=== PATIENT | male | born 1965 | race African-American/Black ===

== ENCOUNTER 2019-11-30 10:23 | Emergency (ER) | payer OTHER, SELFPAY ==
[2019-11-30 10:45] VITALS: BP 119/81; PULSE 90; RESP 16; TEMP 36.6; O2SAT 100
--- NOTE | 2019-11-30 11:32 | ED.BACK ---
HPI - Back Pain/Injury General Chief Complaint: Back Pain/Injury Stated Complaint: back pain Time Seen by Provider: 11/30/19 11:20 Source: patient and RN notes reviewed Mode of arrival: ambulatory Limitations: no limitations History of Present Illness HPI Narrative: 54-year-old male presents with concern for back pain. Reports left lower back pain that radiates down the left leg that is been present for 1 week, worsening last night. Denies any injury, trauma to the back. Denies perianal anesthesia, loss of bowel function, loss of bladder function. Reports history of disc issues in the back. Reports he has an appointment with his primary care provider, however was having trouble at work due to the pain. MD elicited complaint: back pain Related Data Home Medications Medication Instructions Recorded Confirmed duloxetine 60 mg capsule,delayed 60 mg PO DAILY 10/07/19 release quetiapine 50 mg tablet 50 mg PO BID 10/07/19 Allergies Allergy/AdvReac Type Severity Reaction Status Date / Time No Known Allergies Allergy Unknown Verified 08/02/19 14:11 No Known Allergies Allergy Uncoded 08/02/19 14:11 Review of Systems Review of Systems: Narrative: CONSTITUTIONAL: Denies malaise, chills, sweats, or fever. EYES: Denies visual changes CARDIOVASCULAR: Denies chest pain, palpitations, or edema. RESPIRATORY: Denies cough or dyspnea. GASTROINTESTINAL: Denies abdominal pain, nausea, vomiting, diarrhea, bloody, or mucous stools. GENITOURINARY: Denies dysuria or hematuria. SKIN: Denies bruising MUSCULOSKELETAL: Reports left low back pain with a muscle knot near his left buttock NEUROLOGIC: Denies numbness, weakness, or headache. All systems reviewed & are unremarkable except as noted in HPI and below PMFSH Family History Family History (Updated 07/16/16 @ 16:07 by DOCTOR UNKNOWN) Father Family history of Alzheimer's disease Mother Family history of malignant neoplasm of breast in first degree relative Family history of malignant neoplasm of ovary Grandparent Cerebrovascular accident Family history of heart disease in male family member before age 55 Other Family history of malignant neoplasm Social History Social History Smoking status: Never smoker Alcohol intake: current Comments At time of signature, agree with nursing past medical, surgical, social and family history. There is no relevant family history pertinent to the presenting complaint Exam Narrative: Exam Narrative: GENERAL: Well-appearing, well-nourished, and in no acute distress. HEAD: Normocephalic, atraumatic. EYES: PERRLA and EOMI. NECK: Supple. No lymphadenopathy. CHEST: Clear to auscultation. No respiratory distress. HEART: Regular rate and rhythm. Distal pulses palpable and equal, cap refill <3 seconds ABDOMEN: Soft, nontender, nondistended, normal active bowel sounds, no palpable or pulsatile masses. No CVA tenderness MUSCULOSKELETAL: Normal range of motion and strength in all extremities; 3/5 strength with hip flexion and extension, dorsiflexion and extension, knee flexion and extension, plantar flexion and extension bilaterally, exam affected by pain, strength equal. Normal sensation in dermatomal distributions with sensitivity to light touch and pain. No midline back tenderness to palpation. Left paraspinal tenderness. Transfers from lying to sitting to standing. SKIN: Warm, dry, no rash. No ecchymosis, erythema, open wounds to back. NEURO: No focal deficits. Alert and oriented x3. Reflexes intact. Normal gait. PSYCH: Normal mood and affect Course Course Emergency Course: Patient is aware of diagnosis, understands and agrees to treatment plan. Anticipatory guidance given. Patient agrees to follow-up as directed and is aware of reasons to seek care at the emergency department. Portions of this record may have been created with voice recognition software Vital Signs Vital signs: Vital Signs Temperature 97.8 F 11/30/19 10:4
== END 2019-11-30 11:40 | disposition home or self-care (01) ==
PROVIDERS: Emergency Provider Nurse Practitioner; PCP Family Medicine
DX: M54.5 Low back pain (principal); M19.90 Unspecified osteoarthritis, unspecified site
CPT/HCPCS: 99213; G0463

== ENCOUNTER → 2020-01-01 09:27 | Outpatient (CLI) | payer OTHER, SELFPAY ==
--- NOTE | ~2020-01-01 | MR_ITS ---
EXAMINATION: MR knee RT wo con DATE: 01/01/2020 10:15 INDICATION: Anterior right knee pain. Instability. TECHNIQUE: Magnetic resonance imaging (MRI) of the right knee was performed without intravenous contr ast. Sequences included axial PD-weighted FS FSE, coronal PD-weighted FSE and PD-weighted FS FSE, sag ittal PD-weighted FSE, and sagittal T2-weighted FS FSE. COMPARISON: Right knee radiographs 05/28/2016 FINDINGS: Medial compartment: Medial meniscus is normal. There are parameniscal cysts adjacent to the anterior horn and posterior h orn of medial meniscus. There is cartilage surface irregularity of tibial condyle and femoral condyle . There is shallow partial-thickness cartilage loss of femoral condyle involving the central and post erior articular surface. Lateral compartment: Lateral meniscus is normal. There is shallow partial-thickness cartilage loss of tibial condyle invol ving the central and posterior articular surface. There is deep partial thickness cartilage loss of f emoral condyle involving the central and posterior articular surface. Patellofemoral compartment: There is shallow partial-thickness cartilage loss of patellar medial and lateral facets and median ri dge with mild subchondral edema-like marrow signal intensity. There is deep partial thickness cartila ge loss of central trochlea with mild subchondral edema-like marrow signal intensity. There is shallo w partial-thickness cartilage loss of medial and lateral trochlea. Marginal osteophytes are noted. Ligaments and tendons: Anterior and posterior cruciate ligaments are normal. Medial collateral ligament is normal. There are changes of prior sprain of fibular collateral ligament characterized by thickening and increased sig nal intensity proximally. The patellar tendon is normal. There are surgical changes of distal quadric eps tendon repair. There is severe quadriceps tendinopathy. There is heterotopic ossification in quad riceps tendon. Fluid: There is a small knee joint effusion. IMPRESSION: 1. Moderate chondrosis of lateral and patellofemoral compartments and mild chondrosis of medial nick rtment. 2. Small knee joint effusion. 3. Severe quadriceps tendinopathy status post surgical repair. Reviewed, dictated and finalized at location A. IMPRESSION: 1. Moderate chondrosis of lateral and patellofemoral compartments and mild araceli drosis of medial compartment. 2. Small knee joint effusion. 3. Severe quadriceps tendinopathy status post surgical repair.
== END ==
PROVIDERS: PCP Family Medicine; Visit Provider Physician Assistant
DX: M25.461 Effusion, right knee (principal)
CPT/HCPCS: 73721

== ENCOUNTER 2020-05-24 09:23 | Outpatient (CLI) | payer OTHER, SELFPAY ==
[2020-05-24 10:15] LABS: Basophils Percent Auto 0.8 % (0.2-1.2); Eosinophils Absolute Auto 0.3 K/mm3 (0-0.3); Eosinophils Percent Auto 5.6 % (0-4.4); Hematocrit 43.4 % (42.0-52.0); Hemoglobin 14.6 g/dL (14.0-18.0); Immature Granulocyte Absolute 0.01 K/mm3 (0.00-0.031); Immature Granulocyte Percent A 0.2 % (0-0.5); Lymphocytes Absolute Auto 1.82 K/mm3 (0.9-3.2); Lymphocytes Percent Auto 36.4 % (18.3-44.2); Mean Corpuscular HGB Conc 33.6 g/dl (32-36); Mean Corpuscular Hemoglobin 29.3 pg (26-34); Mean Corpuscular Volume 87.1 fl (80-100); Mean Platelet Volume 8.9 fl (7.4-10.4); Monocytes Absolute Auto 0.6 K/mm3 (0.1-0.6); Monocytes Percent Auto 11.6 % (2.6-8.5); Neutrophils Absolute Auto 2.3 K/mm3 (1.3-6.7); Neutrophils Percent Auto 45.4 % (45.5-73.1); Platelet Count Result 233 k/mm3 (150-375); Red Blood Count 4.98 M/mm3 (4.6-6.20); Red Cell Distribution Width 12.4 % (11.5-14.5)
[2020-05-24 10:24] LABS: Alanine Aminotransferase 19 U/L (4-50); Albumin Level 4.3 g/dL (3.5-5.1); Alkaline Phosphatase 67 U/L (38-126); Anion Gap 12.8 mmol/L (7-16); Aspartate Amino Transferase 38 U/L (17-59); Bilirubin,Total 0.7 mg/dL (0.2-1.3); Blood Urea Nitrogen 9 mg/dL (9-20); Calcium 9.2 mg/dL (8.4-10.2); Carbon Dioxide 26 mmol/L (22-30); Chloride 102 mmol/L (98-107); Cholesterol 162 mg/dL (0-200); Estimated Glomerular Filt Rate > 60; Glucose 89 mg/dL (75-110); HDL Direct 66 mg/dL; Potassium 3.8 mmol/L (3.4-5.0); Sodium 137 mmol/L (137-145); Triglycerides 107 mg/dL (<150)
[2020-05-24 10:35] LABS: LDL Cholesterol Direct 70 mg/dL
[2020-05-24 10:56] LABS: Prostate Specific Antigen 0.7 ng/mL (< OR = 4.0)
== END 2020-05-24 09:24 | disposition home or self-care (01) ==
LOC: ANHLAB 09:25
PROVIDERS: PCP Family Medicine; Visit Provider Physician Assistant
DX: Z00.00 Encounter for general adult medical examination without abnormal findings (principal)
CPT/HCPCS: 36415; 80053; 80061; 84153; 84443; 85025

== ENCOUNTER 2021-01-06 09:53 | Outpatient (CLI) | payer OTHER, SELFPAY ==
[2021-01-06 10:18] LABS: Basophils Percent Auto 0.6 % (0.2-1.2); Eosinophils Absolute Auto 0.5 K/mm3 (0-0.3); Hematocrit 44.2 % (42.0-52.0); Hemoglobin 14.9 g/dL (14.0-18.0); Immature Granulocyte Absolute 0.02 K/mm3 (0.00-0.031); Immature Granulocyte Percent A 0.4 % (0-0.5); Lymphocytes Absolute Auto 1.66 K/mm3 (0.9-3.2); Lymphocytes Percent Auto 34.4 % (18.3-44.2); Mean Corpuscular HGB Conc 33.7 g/dl (32-36); Mean Corpuscular Hemoglobin 28.9 pg (26-34); Mean Corpuscular Volume 85.8 fl (80-100); Mean Platelet Volume 8.6 fl (7.4-10.4); Monocytes Absolute Auto 0.6 K/mm3 (0.1-0.6); Monocytes Percent Auto 11.4 % (2.6-8.5); Neutrophils Absolute Auto 2.1 K/mm3 (1.3-6.7); Neutrophils Percent Auto 43.2 % (45.5-73.1); Platelet Count Result 221 k/mm3 (150-375); Red Blood Count 5.15 M/mm3 (4.6-6.20); Red Cell Distribution Width 12.6 % (11.5-14.5); White Blood Count 4.8 K/mm3 (4.5-10.0)
[2021-01-06 10:20] LABS: Add Urine Microscopic? NO; Appearance Urine Clear (Clear); Bilirubin Urine Negative (Negative); Blood Urine Negative (Negative); Color Urine Yellow (Yellow); Glucose Urine UA Negative (Negative); Ketones Urine Negative (Negative); Leukocyte Esterase Ur Negative LEU/UL (NEGATIVE); Nitrate Urine Negative (Negative); Protein Urine Negative (Negative); Specific Grav Ur 1.013 (1.001-1.035); Urobilinogen Urine Negative mg/dL (<2.0)
[2021-01-06 10:29] LABS: Alanine Aminotransferase 17 U/L (4-50); Albumin Level 4.2 g/dL (3.5-5.1); Alkaline Phosphatase 72 U/L (38-126); Anion Gap 2 mmol/L (8-16); Aspartate Amino Transferase 37 U/L (17-59); Bilirubin,Total 0.7 mg/dL (0.2-1.3); Blood Urea Nitrogen 13 mg/dL (9-20); Calcium 9.5 mg/dL (8.4-10.2); Carbon Dioxide 33 mmol/L (22-30); Chloride 104 mmol/L (98-107); Cholesterol 161 mg/dL (0-200); Estimated Glomerular Filt Rate > 60; Glucose 93 mg/dL (75-110); HDL Direct 54 mg/dL; Potassium 4.1 mmol/L (3.4-5.0); Sodium 139 mmol/L (137-145); Triglycerides 74 mg/dL (<150)
[2021-01-06 10:40] LABS: LDL Cholesterol Direct 75 mg/dL
[2021-01-06 11:00] LABS: Prostate Specific Antigen 0.7 ng/mL (< OR = 4.0)
== END 2021-01-06 09:54 | disposition home or self-care (01) ==
PROVIDERS: PCP Family Medicine; Visit Provider Nurse Practitioner Family
DX: R35.1 Nocturia (principal); E78.2 Mixed hyperlipidemia
CPT/HCPCS: 36415; 80053; 80061; 81003; 84153; 84443; 85025; G0103

== ENCOUNTER 2021-07-20 11:07 | Outpatient (CLI) | payer OTHER, SELFPAY ==
--- NOTE | ~2021-07-20 | XR_ITS ---
EXAMINATION: XR hip RT min 2V DATE: 07/20/2021 11:58 INDICATION: Right hip pain. TECHNIQUE: 2 views of right hip were obtained. COMPARISON: Right hip radiographs 08/02/2019 FINDINGS: Bone alignment is normal. No fracture. There is moderate right hip osteoarthritis. IMPRESSION: 1. Moderate right hip osteoarthritis. Reviewed, dictated and finalized at location A.
--- NOTE | ~2021-07-20 | XR_ITS ---
EXAMINATION: XR knee RT 3V DATE: 07/20/2021 11:59 INDICATION: Right hip pain. Inability to bear weight. TECHNIQUE: 3 views of right knee were obtained. COMPARISON: Right knee radiographs 05/28/2016 FINDINGS: Bone alignment is normal. No fracture. There is mild tricompartmental osteoarthritis. There is a small knee joint effusion. There is heterotopic ossification in the area of the quadriceps tend on. IMPRESSION: 1. Mild right knee osteoarthritis. 2. Small right knee joint effusion. Reviewed, dictated and finalized at location A.
== END 2021-07-20 11:08 | disposition home or self-care (01) ==
LOC: ANHIMG 11:14
PROVIDERS: PCP Family Medicine; Visit Provider Nurse Practitioner Family
DX: M17.11 Unilateral primary osteoarthritis, right knee (principal); M25.461 Effusion, right knee; M16.11 Unilateral primary osteoarthritis, right hip
CPT/HCPCS: 73502; 73562

== ENCOUNTER 2023-01-02 07:24 | Outpatient (CLI) | payer OTHER, SELFPAY ==
[2023-01-02 07:50] LABS: Appearance Urine Clear (Clear); Bilirubin Urine Negative (Negative); Blood Urine Negative (Negative); Color Urine Yellow (Yellow); Glucose Urine UA Negative (Negative); Ketones Urine Negative (Negative); Leukocyte Esterase Ur Negative LEU/UL (NEGATIVE); Nitrate Urine Negative (Negative); Protein Urine Negative (Negative); Specific Grav Ur 1.017 (1.001-1.035); pH Urine 8.5 (5.0-9.0)
[2023-01-02 08:11] LABS: Alanine Aminotransferase 26 U/L (6-50); Albumin Level 3.9 g/dL (3.5-5.1); Alkaline Phosphatase 77 U/L (38-126); Anion Gap 4 mmol/L (8-16); Aspartate Amino Transferase 35 U/L (17-59); Basophils Percent Auto 0.7 % (0.2-1.2); Bilirubin,Total 0.8 mg/dL (0.2-1.3); Blood Urea Nitrogen 10 mg/dL (9-20); Calcium 8.8 mg/dL (8.4-10.2); Carbon Dioxide 32 mmol/L (22-30); Chloride 103 mmol/L (98-107); Cholesterol 192 mg/dL (0-200); Eosinophils Absolute Auto 0.3 K/mm3 (0-0.3); Eosinophils Percent Auto 5.5 % (0-4.4); Estimated Glomerular Filt Rate > 60; Glucose 97 mg/dL (65-110); HDL Direct 52 mg/dL; Hematocrit 46.2 % (42.0-52.0); Hemoglobin 15.3 g/dL (14.0-18.0); Immature Granulocyte Absolute 0.03 K/mm3 (0.00-0.031); Immature Granulocyte Percent A 0.5 % (0-0.5); Lymphocytes Absolute Auto 1.66 K/mm3 (0.9-3.2); Lymphocytes Percent Auto 27.7 % (18.3-44.2); Mean Corpuscular HGB Conc 33.1 g/dl (32-36); Mean Corpuscular Hemoglobin 28.8 pg (26-34); Mean Platelet Volume 9.1 fl (7.4-10.4); Monocytes Absolute Auto 0.8 K/mm3 (0.1-0.6); Neutrophils Absolute Auto 3.1 K/mm3 (1.3-6.7); Neutrophils Percent Auto 51.6 % (45.5-73.1); Platelet Count Result 244 k/mm3 (150-375); Potassium 4.1 mmol/L (3.4-5.0); Red Blood Count 5.31 M/mm3 (4.6-6.20); Red Cell Distribution Width 12.9 % (11.5-14.5); Sodium 139 mmol/L (137-145); Triglycerides 117 mg/dL (<150)
[2023-01-02 08:22] LABS: LDL Cholesterol Direct 106 mg/dL
[2023-01-02 08:41] LABS: Prostate Specific Antigen 1.1 ng/mL (< OR = 4.0)
[2023-01-02 09:19] LABS: Folic Acid > 20.0 ng/mL (2.76->20)
[2023-01-02 09:23] LABS: Add Urine Microscopic? NO
== END 2023-01-02 07:25 | disposition home or self-care (01) ==
LOC: ANHLAB 07:25
PROVIDERS: PCP Family Medicine; Visit Provider Physician Assistant
DX: Z00.00 Encounter for general adult medical examination without abnormal findings (principal); F41.9 Anxiety disorder, unspecified; R35.1 Nocturia; E53.8 Deficiency of other specified B group vitamins
CPT/HCPCS: 36415; 80053; 80061; 81003; 82607; 82746; 84153; 84443; 85025

== ENCOUNTER 2023-01-17 01:50 | Day surgery (SDC) | payer OTHER, SELFPAY ==
[2023-01-08 14:12] VITALS: BMI 26.4
--- NOTE | 2023-01-17 07:29 | P.PNAN_ITS ---
Anes - Initial Pre Proc Eval Procedure: Operation Date: 01/17/23 08:30 Proposed Procedures p Screening Colonoscopy - Suleman Balderas MD Date/Time: 01/17/23 07:29 Surgeon: Suleman Balderas MD Pre Op Diagnosis: neoplasm screening Patient Data Age: 57 Gender: M Height: 1.78 m Weight: 83.5 kg Allergies Allergy/AdvReac Type Severity Reaction Status Date / Time No Known Allergies Allergy Unknown Verified 01/17/23 07:44 Home Medications Medication Instructions Recorded Confirmed Type duloxetine 60 mg capsule,delayed 90 mg PO DAILY #30 caps 12/20/20 01/08/23 Rx release (Cymbalta) aspirin 81 mg tablet,delayed 81 mg PO DAILY #90 tabs 07/04/22 01/08/23 Rx release (Adult Aspirin Regimen) vitamin B complex (B 1 tablet PO DAILY #90 tabs 07/04/22 01/08/23 Rx Complex-Vitamin B12 tablet) Patient hx anesthesia problems: none Family hx anesthesia problems: none Results Review: All pre-operative results and documents have been reviewed as part of the pre-operative evaluation. [facility] Past Medical History Medical History (Updated 01/17/23 @ 07:30 by Brad Mata DO) Anxiety TIA (transient ischemic attack) Family History Family History Father Family history of Alzheimer's disease Mother Family history of malignant neoplasm of breast in first degree relative Family history of malignant neoplasm of ovary Grandparent Cerebrovascular accident Family history of heart disease in male family member before age 55 Other Family history of malignant neoplasm Social History Social History Years smoked: 0 Smoking status: Never smoker Second hand tobacco smoke exposure: No Alcohol intake: current Drinks per week: 3 Substance use: never Substance use type: does not use Living arrangements: with family Occupation/Education: occupation Gender identity (if verbalized by the patient): Male Sexual Orientation (if Verbalized by the Patient): Straight or Heterosexual Spiritual care concerns: No Anes - Eval Final PreProcedure Day of Procedure 01/17/23 07:29 Patient weight: overweight Heart: regular rate and rhythm Lungs: clear to auscultation Airway: Mallampati scale class II Neurological: alert and oriented Last oral intake: >/= 8 hours ASA classification: III Emergent: no Anesthetic plan: proceed Anesthesia type and monitoring: general GIVS and standard monitoring Results Review: All pre-operative results and documents have been reviewed as part of the pre- operative evaluation. Informed Consent: The patient's anesthetic plan and its attendant risks and benefits were discussed with the patient/family/POA. Questions were solicited and answers provided to the satisfaction of the patient/family/POA.
[2023-01-17 07:47] VITALS: BP 128/87; PULSE 80; RESP 20; TEMP 36.3; O2SAT 100; BMI 26.7
[2023-01-17] MEDS: LACTATED RINGERS 1,000 ML 150 ML IV CONT (07:52)
--- NOTE | 2023-01-17 08:23 | PM.HPGS ---
History of Present Illness History of Present Illness Consent: Risks, benefits, and alternatives have been discussed and questions answered. Patient agrees to proceed with procedure. Chief complaint: neoplasm screening Narrative: Buzz Monae is a 57 year old male Presents for screening colonoscopy. Patient's family history is significant that his father had colon polyps. Patient self has had colon polyps. Initially found to have colon polyps at age 37. Most recent colonoscopy with polyps was in 2018. Patient reports his current weight appetite bowel movements are normal. Patient denies abdominal pain. He has had no bleeding. Review of Systems Review of Systems: Review of systems noncontributory. [facility] Past Medical History Medical History (Updated 01/17/23 @ 08:25 by Suleman Balderas MD) Anxiety TIA (transient ischemic attack) Family History Family History Father Family history of Alzheimer's disease Mother Family history of malignant neoplasm of breast in first degree relative Family history of malignant neoplasm of ovary Grandparent Cerebrovascular accident Family history of heart disease in male family member before age 55 Other Family history of malignant neoplasm Social History Social History Years smoked: 0 Smoking status: Never smoker Second hand tobacco smoke exposure: No Alcohol intake: current Drinks per week: 3 Substance use: never Substance use type: does not use Living arrangements: with family Occupation/Education: occupation Gender identity (if verbalized by the patient): Male Sexual Orientation (if Verbalized by the Patient): Straight or Heterosexual Spiritual care concerns: No Meds Home Medications and Allergies Home Medications Medication Instructions Recorded Confirmed Type duloxetine 60 mg capsule,delayed 90 mg PO DAILY #30 caps 12/20/20 01/08/23 Rx release (Cymbalta) aspirin 81 mg tablet,delayed 81 mg PO DAILY #90 tabs 07/04/22 01/08/23 Rx release (Adult Aspirin Regimen) vitamin B complex (B 1 tablet PO DAILY #90 tabs 07/04/22 01/08/23 Rx Complex-Vitamin B12 tablet) Allergies Allergy/AdvReac Type Severity Reaction Status Date / Time No Known Allergies Allergy Unknown Verified 01/17/23 07:44 Vital Signs Vital Signs - 24 hr 01/17/23 07:47 Temperature 97.4 F L Pulse Rate 80 Respiratory Rate 20 Blood Pressure 128/87 Pulse Oximetry 100 Oxygen Delivery Room Air Exam Narrative: Physical exam reveals patient to be alert. Vital signs stable. HEENT exam is unremarkable. Patient is anicteric. Lungs are clear to auscultation and percussion. Heart is without murmur or extra sounds. Abdomen bowel sounds are present soft nontender with no organomegaly. Digital external rectal exam normal. Assessment and Plan Assessment and plan (1) History of colon polyps: Code(s): Z86.010 - Personal history of colonic polyps Status: Acute Assessment and Plan: Patient has a history of colon polyps. Follow-up colonoscopy advised at 5 year intervals. (2) Family history of colonic polyps: Code(s): Z83.71 - Family history of colonic polyps Status: Acute
[2023-01-17 08:58] VITALS: BP 109/72; PULSE 77; RESP 20; O2SAT 99
[2023-01-17 09:08] VITALS: BP 111/80; PULSE 76; RESP 20; O2SAT 100
[2023-01-17 09:18] VITALS: BP 131/79; PULSE 78; RESP 24; O2SAT 100
== END 2023-01-17 09:23 | disposition home or self-care (01) ==
PROVIDERS: PCP Family Medicine; Visit Provider Internal Medicine Gastroenterology
PROC: 0DJD8ZZ Inspection of Lower Intestinal Tract, Via Natural or Artificial Opening Endoscopic (ICD-10-PCS; CPT 45378; principal; 2023-01-17 08:30)
DX: Z12.11 Encounter for screening for malignant neoplasm of colon (principal); K62.1 Rectal polyp; Z83.71 Family history of colonic polyps; Z79.82 Long term (current) use of aspirin; F41.9 Anxiety disorder, unspecified; Z86.73 Personal history of transient ischemic attack (TIA), and cerebral infarction without residual deficits
CPT/HCPCS: 45385; 88305; 88342; J2704; J7120

== ENCOUNTER 2023-05-01 13:56 | Outpatient (CLI) | payer OTHER, SELFPAY ==
--- NOTE | 2023-05-01 14:29 | ECG_ITS ---
Measurements Intervals [place] Rate: 74 P: 60 GA: 169 QRS: -12 QRSD: 91 T: 29 QT: 370 QTc: 411 Interpretive Statements SINUS RHYTHM INCOMPLETE RIGHT BUNDLE BRANCH BLOCK BORDERLINE ECG NO PREVIOUS ECG AVAILABLE FOR COMPARISON Electronically Signed On 05-01-2023 14:57:32 CDT by Lyle Liz D.O.
[2023-05-01 15:09] LABS: Basophils Absolute Auto 0.1 K/mm3 (0.0-0.1); Basophils Percent Auto 0.9 % (0.2-1.2); Eosinophils Absolute Auto 0.4 K/mm3 (0-0.3); Eosinophils Percent Auto 7.3 % (0-4.4); Hematocrit 46.5 % (42.0-52.0); Immature Granulocyte Absolute 0.02 K/mm3 (0.00-0.031); Immature Granulocyte Percent A 0.3 % (0-0.5); Lymphocytes Absolute Auto 1.83 K/mm3 (0.9-3.2); Lymphocytes Percent Auto 31.2 % (18.3-44.2); Mean Corpuscular HGB Conc 32.3 g/dl (32-36); Mean Corpuscular Hemoglobin 28.3 pg (26-34); Mean Corpuscular Volume 87.7 fl (80-100); Mean Platelet Volume 9.3 fl (7.4-10.4); Monocytes Absolute Auto 0.8 K/mm3 (0.1-0.6); Monocytes Percent Auto 13.1 % (2.6-8.5); Neutrophils Absolute Auto 2.8 K/mm3 (1.3-6.7); Neutrophils Percent Auto 47.2 % (45.5-73.1); Platelet Count Result 262 k/mm3 (150-375); White Blood Count 5.9 K/mm3 (4.5-10.0)
[2023-05-01 15:10] LABS: Appearance Urine Clear (Clear); Bilirubin Urine Negative (Negative); Blood Urine Negative (Negative); Color Urine Yellow (Yellow); Glucose Urine UA Negative (Negative); Ketones Urine Negative (Negative); Leukocyte Esterase Ur Negative LEU/UL (Negative); Nitrate Urine Negative (Negative); Protein Urine Negative (Negative); Specific Grav Ur 1.007 (1.001-1.035); Urobilinogen Urine 0.2 mg/dL (<2.0)
[2023-05-01 15:19] LABS: Add Urine Microscopic? NO
[2023-05-01 15:21] LABS: Anion Gap 5 mmol/L (8-16); Blood Urea Nitrogen 9 mg/dL (9-20); Calcium 8.8 mg/dL (8.4-10.2); Carbon Dioxide 28 mmol/L (22-30); Chloride 104 mmol/L (98-107); Estimated Glomerular Filt Rate > 60; Glucose 88 mg/dL (65-110); Sodium 137 mmol/L (137-145)
== END 2023-05-01 13:57 | disposition home or self-care (01) ==
LOC: ANHLAB 13:57
PROVIDERS: PCP Family Medicine; Visit Provider Orthopaedic Surgery
DX: E53.8 Deficiency of other specified B group vitamins (principal); M16.11 Unilateral primary osteoarthritis, right hip; G45.9 Transient cerebral ischemic attack, unspecified; I45.10 Unspecified right bundle-branch block
CPT/HCPCS: 36415; 80048; 81003; 85025; 93005

== ENCOUNTER 2023-06-26 09:43 | Outpatient (CLI) | payer OTHER, SELFPAY ==
[2023-06-26 11:04] LABS: Basophils Percent Auto 0.7 % (0.2-1.2); Eosinophils Absolute Auto 0.3 K/mm3 (0-0.3); Eosinophils Percent Auto 5.1 % (0-4.4); Hematocrit 46.7 % (42.0-52.0); Hemoglobin 15.2 g/dL (14.0-18.0); Immature Granulocyte Absolute 0.03 K/mm3 (0.00-0.031); Immature Granulocyte Percent A 0.5 % (0-0.5); Lymphocytes Absolute Auto 1.88 K/mm3 (0.9-3.2); Lymphocytes Percent Auto 31.8 % (18.3-44.2); Mean Corpuscular HGB Conc 32.5 g/dl (32-36); Mean Corpuscular Hemoglobin 28.4 pg (26-34); Mean Corpuscular Volume 87.3 fl (80-100); Mean Platelet Volume 9.1 fl (7.4-10.4); Monocytes Absolute Auto 0.7 K/mm3 (0.1-0.6); Monocytes Percent Auto 11.8 % (2.6-8.5); Neutrophils Percent Auto 50.1 % (45.5-73.1); Platelet Count Result 235 k/mm3 (150-375); Red Blood Count 5.35 M/mm3 (4.6-6.20); Red Cell Distribution Width 12.7 % (11.5-14.5); White Blood Count 5.9 K/mm3 (4.5-10.0)
[2023-06-26 11:08] LABS: Appearance Urine Clear (Clear); Bilirubin Urine Negative (Negative); Blood Urine Negative (Negative); Color Urine Yellow (Yellow); Glucose Urine UA Negative (Negative); Ketones Urine Negative (Negative); Leukocyte Esterase Ur Negative LEU/UL (Negative); Nitrate Urine Negative (Negative); Protein Urine Negative (Negative); Specific Grav Ur 1.013 (1.001-1.035); pH Urine 7.5 (5.0-9.0)
[2023-06-26 11:10] LABS: Add Urine Microscopic? NO
[2023-06-26 11:14] LABS: Prothrombin Time 13.4 Seconds (11.1-14.7)
[2023-06-26 11:15] LABS: Partial Thromboplastin Time 34.4 SECONDS (22.3-36.8); Urine Cotinine NEGATIVE
[2023-06-26 11:37] LABS: Anion Gap 3 mmol/L (8-16); Blood Urea Nitrogen 12 mg/dL (9-20); Calcium 8.8 mg/dL (8.4-10.2); Carbon Dioxide 29 mmol/L (22-30); Chloride 102 mmol/L (98-107); Estimated Glomerular Filt Rate > 60; Glucose 97 mg/dL (65-110); Potassium 4.4 mmol/L (3.4-5.0); Sodium 134 mmol/L (137-145)
[2023-06-26 12:01] LABS: Hemoglobin A1C 5.3 % (<5.7)
== END 2023-06-26 09:44 | disposition home or self-care (01) ==
LOC: ANHSURGERY 09:46
PROVIDERS: PCP Family Medicine; Visit Provider Orthopaedic Surgery
DX: M16.11 Unilateral primary osteoarthritis, right hip (principal); Z01.818 Encounter for other preprocedural examination
CPT/HCPCS: 80048; 80307; 81003; 82040; 83036; 85025; 85610; 85730; 86850; 86900; 86901; 87081

== ENCOUNTER 2023-07-09 02:37 | Day surgery (SDC) | payer OTHER, SELFPAY ==
[2023-06-26 09:52] VITALS: BMI 28.0
--- NOTE | 2023-06-26 10:11 | PC.NURSE ---
Report to the Outpatient Waiting Room, entrance under the green pavilion located off [facility], at time 0900 on date __07/09/23____. Planned Procedure Time: _1100 . Time changes happen often and if your time is changed the preop area will call you the afternoon before. - You and your visitor will be asked to self-screen and do not enter if you have any COVID symptoms. - A mask is optional within the hospital at this time. Patients may have clear liquids (water, carbonated beverages, clear teas, apple juice) until 3 hours prior to surgery with a maximum of 20 ounces. - No food from midnight until time of surgery - Infants may have breast milk until 4 hours before surgery, formula 6 hours prior to surgery. - Children will be allowed to drink immediately following surgery. If applicable, please bring a bottle or sippy cup to assist with drinking. Juice, water, soda, and popsicles are readily available. For infants on formula, please bring formula the day of surgery. Pacifiers are allowed. Take the following medications with a SIP of water the morning of surgery: ___DULOXETIEN DO NOT STOP ANY OF YOUR OTHER PRESCRIPTION MEDICATIONS PRIOR TO SURGERY ?EXCEPT THE FOLLOWING Medications to discontinue per physician __HOLD ASPIRIN 7 DAYS PRE OP PER DR HERNANDEZ.LAST DOSE 06/24/23 PER PATIENT. ALL VITAMINS AND SUPPPLEMENTS 3 DAYS PRE OP.LAST DOSE 07/05/23. __ALEVE PER DR MCDOWELL HIBICLENS PER DR MCDOWELL Please no make-up, nail persian, hairspray, perfume, deodorant, or body powder the day of surgery. No jewelry (including any body piercings) or valuables the day of surgery, leave them at home. Please take a shower or bath the night before, or the morning of, surgery with an antibacterial soap. Wear comfortable, loose fitting clothing. Children are encouraged to wear pajamas. - Jewelry must be removed prior to entering the operating room. Rings and piercings that are not removed may be cut off. - The hospital will not accept responsibility for valuables. - Please leave all valuables, including medications, at home the day of surgery. If you are going home after surgery, a licensed lunch truck driver must drive you home. - NO public transportation without another adult if you receive anesthesia. - We recommend that an adult stay with you for 24 hours following discharge. - We also recommend that you do not drive, make important decision, drink alcoholic beverages, or take any drugs that were not prescribed by your health care provider for at least 24 hours after your discharge time. Follow any additional instructions given to you from your surgeon. If you or anyone in your household have experienced Covid symptoms in the past week, please notify your surgeon or the nurse liaison at the phone number below for possible testing. VERBAL AND WRITTEN instructions given to ___PATIENT and asked if any additional questions and then verbalized understanding. Patient advised to call surgeon office or pre surgery nurse liaison [phone] if any additional questions.
[2023-06-26 10:46] VITALS: BP 123/91; PULSE 74; RESP 18; TEMP 36.6; O2SAT 100
--- NOTE | 2023-07-08 20:46 | WPDANESEPPF ---
Anes - Initial Pre Proc Eval Procedure: Operation Date: 07/09/23 11:00 Proposed Procedures p Right Total Hip Arthroplasty - Kai Casas MD Date/Time: 07/08/23 20:46 Surgeon: Kai Casas MD Pre Op Diagnosis: right hip djd Patient Data Age: 58 Gender: M Height: 1.75 m Weight: 86.1 kg Last Vital Signs Temp 36.6 C 06/26/23 10:46 Pulse 74 06/26/23 10:46 Resp 18 06/26/23 10:46 BP 123/91 H 06/26/23 10:46 Pulse Ox 100 06/26/23 10:46 O2 Del Method Room Air 06/26/23 10:46 Allergies Allergy/AdvReac Type Severity Reaction Status Date / Time No Known Allergies Allergy Unknown Verified 07/09/23 10:05 Home Medications Medication Instructions Recorded Confirmed Type duloxetine 60 mg capsule,delayed 90 mg PO DAILY #30 caps 12/20/20 06/26/23 Rx release (Cymbalta) aspirin 81 mg tablet,delayed 81 mg PO DAILY #90 tabs 07/04/22 07/09/23 Rx release (Adult Aspirin Regimen) vitamin B complex (B 1 tablet PO DAILY #90 tabs 07/04/22 07/09/23 Rx Complex-Vitamin B12 tablet) chlorhexidine gluconate 4 % 1 applic topical DAILY #237 mL 06/25/23 06/26/23 Rx topical liquid (Hibiclens) multivitamin 1 tablet PO DAILY 06/26/23 07/09/23 History naproxen sodium 220 mg capsule 220 mg PO Q12H PRN Pain 06/26/23 07/09/23 History (Aleve) Patient hx anesthesia problems: none Family hx anesthesia problems: none Results Review: All pre-operative results and documents have been reviewed as part of the pre-operative evaluation. [facility] Past Medical History Medical History (Updated 07/09/23 @ 10:28 by Brad Mata DO) Anxiety Degenerative joint disease of right hip Post traumatic stress disorder (PTSD) Surgical History Surgical History History of left knee surgery Left knee avulsion fracture- 2000 Dr. Lincoln History of right knee surgery Rt knee quad repair-2004 Dr. Apple History of surgery on right wrist 4 Corner fusion -2009- Dr. Nur Family History Family History Father Family history of Alzheimer's disease Mother Family history of malignant neoplasm of breast in first degree relative Family history of malignant neoplasm of ovary Grandparent Cerebrovascular accident Family history of heart disease in male family member before age 55 Other Family history of malignant neoplasm Social History Social History Years smoked: 0 Smoking status: Never smoker Second hand tobacco smoke exposure: No Additional smoking assessment comments: DENIES ANY FORM OF TOBACCO USE Alcohol intake: current Drinks per week: 3 Substance use: never Substance use type: does not use Living arrangements: with family Occupation/Education: occupation Gender identity (if verbalized by the patient): Male Sexual Orientation (if Verbalized by the Patient): Straight or Heterosexual Spiritual care concerns: No Anes - Eval Final PreProcedure Day of Procedure 07/08/23 20:46 Patient weight: overweight Heart: regular rate and rhythm Lungs: clear to auscultation Airway: Mallampati scale class II Neurological: alert and oriented Last oral intake: >/= 8 hours ASA classification: II Emergent: no Anesthetic plan: proceed Anesthesia type and monitoring: general ETT and standard monitoring Results Review: All pre-operative results and documents have been reviewed as part of the pre-operative evaluation. Informed Consent: The patient's anesthetic plan and its attendant risks and benefits were discussed with the patient/family/POA. Questions were solicited and answers provided to the satisfaction of the patient/family/POA.
[2023-07-09] VITALS (14 sets, daily range): BP systolic 94–130; BP diastolic 53–93; PULSE 77–87; RESP 12–21; TEMP 35.9–36.8; O2SAT 95–100; BMI 29.2
--- NOTE | ~2023-07-09 | XR_ITS ---
EXAMINATION: XR hip RT min 2V DATE: 07/09/2023 14:46 INDICATION: Total right hip arthroplasty. Postop. TECHNIQUE: 2 views of right hip were obtained. COMPARISON: Right hip radiographs 05/01/2023 FINDINGS: There is a total right hip arthroplasty in near-anatomic alignment. No fracture. IMPRESSION: 1. Total right hip arthroplasty in near-anatomic alignment. Reviewed, dictated and finalized at location A.
--- NOTE | 2023-07-09 07:22 | WPDHPUPDATE1 ---
History and Physical Update Update Date/Time: 07/09/23 07:22 History and Physical has been reviewed, including an updated exam of the patient. There are NO changes in the patient's condition. Risks, benefits, and alternatives have been discussed and questions answered. Patient agrees to proceed with procedure.
[2023-07-09] MEDS: LACTATED RINGERS 1,000 ML 30 ML IV CONT ×2 (09:45→14:30)
[2023-07-09] MEDS: ACETAMINOPHEN 500 MG TABLET 1000 MG PO (09:55)
[2023-07-09] MEDS: TRANEXAMIC ACID 1,000MG/ISO100 1,000 MG/100 ML BAG 200 MG IVPB (10:23)
[2023-07-09] MEDS: ceFAZolin 2 GM/D5W 50 ML 2 GM/50 ML BAG IVPB ×2 (11:10→18:56)
[2023-07-09] MEDS: TRANEXAMIC ACID 1,000 MG/10 ML AMPUL 1000 MG IV PUSH (13:26)
[2023-07-09] MEDS: fentaNYL CITRATE INJ (*CRX) 100 MCG/2 ML VIAL 25 MCG IV PUSH ×4 (14:37→14:53)
--- NOTE | 2023-07-09 14:47 | W.PM.PROC2 ---
Procedure Note - Detailed Date of Procedure 07/09/23 Pre-op Diagnosis right hip djd Post-op Diagnosis Same Procedure Performed R ROSALINDA Surgeon Kai Casas MD Anesthesia General Description of Procedure THE PATIENT WAS TAKEN TO THE OPERATING ROOM IN STABLE CONDITION AND WAS PLACED IN THE LATERAL DECUBITUS AND THE RIGHT LOWER EXTREMITY WAS PREPPED AND DRAPED IN THE STERILE FASHION. INCISION WAS MADE IN THE POSTERIOR LATERAL SIDE OF THE HIP, DOWN TO THE FASCIA LAYER. THE FASCIA WAS INCISED. THE HIP WAS EXPOSED. THE SHORT EXTERNAL ROTATORS WERE EXPOSED. THE SCIATIC NERVE WAS IDENTIFIED. INCISION WAS MADE THROUGH THE SHORT EXTERNAL ROTATORS AND THE CAPSULE OF THE HIP JOINT. THE HIP WAS DISLOCATED. AN OSTEOTOMY WAS MADE TO THE FEMORAL NECK ABOUT 1 CM PROXIMAL TO THE LESSER TROCHANTER. THE ACETABULUM WAS EXPOSED. THERE WAS SEVERE DJD SEEN. BEGINNING WITH A 49 REAMER THE ACETABULUM WAS REAMED TO 55 MM. A 55 MM TRIAL WAS PLACED IN 35 DEG OF ABDUCTION AND ANTEVERSION WAS IN ALIGNMENT WITH THE TRANS ACETABULAR LIGAMENT. THE FIT WAS EXCELLENT. THE TRIAL WAS REMOVED. A 56 MM BIOMET G7 COMPONENT WAS THEN TAPPED IN TO PLACE IN 35 DEG OF ABDUCTION AND ANTEVERSION IN ALIGNMENT WITH THE TRANSVERSE ACETABULAR LIGAMENT. THE FIT WAS EXCELLENT. THE ACETABULAR LINER WAS PLACED AND CHECKED FOR STABILITY. NEXT THE FEMUR WAS PREPARED WITH INITIAL CANAL FINDER THEN SEQUENTIAL BROACHING WITH A TAPERLOC HIP SYSTEM, UNTIL A 10 BROACH FIT WELL IN 15 OF ANTEVERSION. A +3 HIGH OFFSET NECK WITH 36 MM HEAD TRIAL WAS PLACED. THE SHUCK TEST WAS EXCELLENT AND THE STABILITY IN FLEXION AND ROTATION WAS EXCELLENT. LEG LENGTHS WERE GROSSLY EQUAL. TRIALS WERE REMOVED. A BIOMET TAPERLOC 10 STEM WAS PLACED WITH A HIGH OFFSET NECK. THE FIT WAS EXCELLENT IN 15 DEG OF ANTEVERSION. A +3 CERAMIC 36 MM FEMORAL HEAD WAS PLACED. THE HIP WAS TRIALED AND THE STABILITY WAS EXCELLENT WERE THE LEG LENGTHS AND THE SHUCK TEST. THE WOUND WAS IRRIGATED WITH STERILE BETADINE AND WATER FOR 3 MIN. THEN WASHED AGAIN. THE SCIATIC NERVE WAS IDENTIFIED AGAIN. THE CAPSULE AND THE EXTERNAL ROTATORS WERE APPROXIMATED WITH NUMBER 1 VICRYL. THE FASCIA WITH No 2 QUIL AND THE SUB CUTANEOUS LAYER WITH 2-0 ABSORBABLE SUTURE AND A RUNNING 3-0 SUBCUTICULAR STITCH FOR THE SKIN. DERMABOND WAS PLACED AND STERILE DRESSING WAS APPLIED. PATIENT WAS PLACED BACK ON TO THE SUPINE POSITION AND WAS EXTUBATED Estimated Blood Loss -350.0 Complications No immediate complications Condition Stable Disposition PACU
[2023-07-09] MEDS: KETOROLAC 15 MG/ML VIAL (*BKC) IV PUSH ×2 (14:59→18:56)
--- NOTE | 2023-07-09 16:23 | ADMGEN ---
This patient, Buzz Monae, was admitted to Medical Room 258-01. Patient/family oriented to hospital policies and general routines including ID bracelet, bed and alarms, visiting hours, pain management, procedures, bathroom and other care routines, personal items, smoking policy, room service/diet, and visiting hours. Information on how to activate the Rapid Response Team has been discussed. Patient/Family are encouraged to report perceived risks to care and to ask questions if they do not understand what they are told or what they should do.
[2023-07-09] MEDS: SENNA/DOCUSATE SODIUM TABLET 2 TAB PO (16:47)
[2023-07-09] MEDS: HYDROcodone/acetaminophen (*CRX) 7.5-325 MG TABLET 2 TAB PO (16:47)
[2023-07-09] MEDS: DEXTROSE 5%/0.45% SOD CHL 1,000 ML 80 ML IV CONT (17:23)
[2023-07-09] MEDS: FAMOTIDINE 20 MG TABLET PO (20:49)
[2023-07-09] MEDS: HYDROcodone/acetaminophen (*CRX) 7.5-325 MG TABLET 1 TAB PO (22:49)
[2023-07-10 02:02] VITALS: BP 100/56; PULSE 79; RESP 21; TEMP 36.1; O2SAT 100
[2023-07-10] MEDS: ceFAZolin 2 GM/D5W 50 ML 2 GM/50 ML BAG IVPB ×2 (03:27→11:45)
[2023-07-10 05:45] VITALS: BP 125/70; PULSE 88; RESP 21; TEMP 36.4; O2SAT 100
[2023-07-10 06:09] LABS: Basophils Percent Auto 0.1 % (0.2-1.2); Hematocrit 32.6 % (42.0-52.0); Hemoglobin 10.8 g/dL (14.0-18.0); Immature Granulocyte Absolute 0.11 K/mm3 (0.00-0.031); Immature Granulocyte Percent A 0.9 % (0-0.5); Lymphocytes Absolute Auto 1.06 K/mm3 (0.9-3.2); Lymphocytes Percent Auto 8.2 % (18.3-44.2); Mean Corpuscular HGB Conc 33.1 g/dl (32-36); Mean Corpuscular Hemoglobin 28.5 pg (26-34); Mean Platelet Volume 8.8 fl (7.4-10.4); Monocytes Absolute Auto 1.7 K/mm3 (0.1-0.6); Monocytes Percent Auto 12.8 % (2.6-8.5); Neutrophils Absolute Auto 10.1 K/mm3 (1.3-6.7); Platelet Count Result 200 k/mm3 (150-375); Red Blood Count 3.79 M/mm3 (4.6-6.20); Red Cell Distribution Width 12.5 % (11.5-14.5); White Blood Count 12.9 K/mm3 (4.5-10.0)
[2023-07-10] MEDS: KETOROLAC 15 MG/ML VIAL (*BKC) IV PUSH ×3 (06:11→11:44)
[2023-07-10 06:20] LABS: Anion Gap 4 mmol/L (8-16); Blood Urea Nitrogen 15 mg/dL (9-20); Calcium 7.9 mg/dL (8.4-10.2); Carbon Dioxide 26 mmol/L (22-30); Chloride 102 mmol/L (98-107); Estimated CRCL calculation 54 ml/min; Estimated Glomerular Filt Rate > 60; Glucose 146 mg/dL (65-110); Potassium 4.3 mmol/L (3.4-5.0); Sodium 132 mmol/L (137-145)
[2023-07-10] MEDS: DULoxetine HCL 30 MG CAPSULE.DR 90 MG PO (09:27)
[2023-07-10] MEDS: FAMOTIDINE 20 MG TABLET PO (09:27)
[2023-07-10] MEDS: SENNA/DOCUSATE SODIUM TABLET 2 TAB PO ×2 (09:28→17:22)
[2023-07-10] MEDS: polyethylene glycoL 3350 17 GM POWD.PACK PO (09:28)
[2023-07-10] MEDS: ASPIRIN 81 MG ENTERIC TABLET PO (09:28)
[2023-07-10 09:57] VITALS: BP 104/72; PULSE 69; RESP 16; TEMP 36.3; O2SAT 99
[2023-07-10] MEDS: HYDROcodone/acetaminophen (*CRX) 7.5-325 MG TABLET 1 TAB PO (11:42)
--- NOTE | 2023-07-10 11:49 | WPDANESPN ---
Anes - Prog Note Post-Op Date/Time: 07/10/23 11:49 Cardiovascular status: normal Respiratory status: normal Airway patency: baseline Mental status: baseline Post-Op hydration status: normal Vital Signs: Last Vital Signs Temp 36.3 C L 07/10/23 09:57 Pulse 69 07/10/23 09:57 Resp 16 07/10/23 09:57 BP 104/72 07/10/23 09:57 Pulse Ox 99 07/10/23 09:57 O2 Del Method Room Air 07/10/23 10:56 O2 Flow Rate 6 07/09/23 14:45 Pain Score (VAS): 11/05 I/O: Intake & Output 07/09/23 07/10/23 07/10/23 23:59 07:59 15:59 Intake Total 290 1050 240 Output Total 700 Balance 290 350 240 Laboratory Tests 07/10/23 05:55 07/10/23 05:55 07/10/23 05:55 WBC 12.9 H RBC 3.79 L Hgb 10.8 L D Hct 32.6 L MCV 86.0 MCH 28.5 MCHC 33.1 RDW 12.5 Plt Count 200 MPV 8.8 Immature Gran % (Auto) 0.9 H Neut % (Auto) 78.0 H Lymph % (Auto) 8.2 L [place] % (Auto) 12.8 H Eos % (Auto) 0.0 Baso % (Auto) 0.1 L Lymph # (Auto) 1.06 [place] # (Auto) 1.7 H Eos # (Auto) 0.0 Baso # (Auto) 0.0 Abs Immat Gran (auto) 0.11 H Absolute Neuts (auto) 10.1 H Absolute Nucleated RBC 0.0 Nucleated RBC % 0.0 Sodium 132 L Potassium 4.3 Chloride 102 Carbon Dioxide 26 Anion Gap 4 L BUN 15 Creatinine 1.30 Estim Creat Clear Calc 54 Estimated GFR > 60 Glucose 146 H Calcium 7.9 L Post-procedural complaints: none Patient Feedback: Patient satisfied with anesthetic care.
[2023-07-10 13:50] VITALS: BP 106/71; PULSE 72; RESP 16; TEMP 36.9; O2SAT 97
--- NOTE | 2023-07-10 16:49 | PM.DS ---
DS: Admitting Diagnosis Discharge Date 07/10/23 Admitting Diagnosis RIGHT HIP DJD DS: Discharge Diagnosis Discharge Diagnosis (1) Degenerative joint disease of right hip: Qualifiers: Osteoarthritis type: primary Qualified Code(s): M16.11 - Unilateral primary osteoarthritis, right hip Code(s): M16.11 - Unilateral primary osteoarthritis, right hip Status: Acute Assessment and Plan: S/P RIGHT ROSALINDA DOING WELL. OK TO DC HOME F/U IN 3 WEEKS DS: Summary Hospital Course Reason for hospitalization: R ROSALINDA Hospital Course: PATIENT WAS ADMITTED S/P TOTAL HIP ARTHROPLASTY FOR POSTOPERATIVE MEDICAL MANAGEMENT, PAIN CONTROL AND MOBILIZATION WITH PHYSICAL AND OCCUPATIONAL THERAPY. THE PATIENT PROGRESSED WELL WITH PT/OT. LABS AND VITALS REMAINED STABLE AND PAIN WELL CONTROLLED. THE PATIENT HAS BEEN CLEARED TO BE DISCHARGED HOME. FOLLOW UP APPOINTMENT SCHEDULED. DISCHARGE INSTRUCTIONS DISCUSSED AT LENGTH WITH THE PATIENT. MEDICATIONS REVIEWED. Status at Discharge Cognitive/behavioral status at discharge: STABLE Functional status at discharge: uses cane/walker Time Spent with Patient Time attestation: Total time spent providing and/or coordinating discharge services: Exam Extrem: Other: VSS AFEBRILE DRESSING DRY NV INTACT NEG HOMANS SIGN CALF, THIGH SOFT NON TENDER DS: Data Data Completed and Pending Labs on day of discharge: Labs from last 24 hours 07/10/23 05:55 WBC 12.9 H RBC 3.79 L Hgb 10.8 L D Hct 32.6 L MCV 86.0 MCH 28.5 MCHC 33.1 RDW 12.5 Plt Count 200 MPV 8.8 Immature Gran % (Auto) 0.9 H Neut % (Auto) 78.0 H Lymph % (Auto) 8.2 L [place] % (Auto) 12.8 H Eos % (Auto) 0.0 Baso % (Auto) 0.1 L Lymph # (Auto) 1.06 [place] # (Auto) 1.7 H Eos # (Auto) 0.0 Baso # (Auto) 0.0 Abs Immat Gran (auto) 0.11 H Absolute Neuts (auto) 10.1 H Absolute Nucleated RBC 0.0 Nucleated RBC % 0.0 Sodium 132 L Potassium 4.3 Chloride 102 Carbon Dioxide 26 Anion Gap 4 L BUN 15 Creatinine 1.30 Estim Creat Clear Calc 54 Estimated GFR > 60 Glucose 146 H Calcium 7.9 L Procedures/Treatments: R ROSALINDA Discharge Plan Discharge Patient Disposition: Home Health Service Discharge Instructions: Post Op Total Hip Replacement Instructions Dr. Kai Casas [phone] Your dressing will be changed prior to your discharge. You will be sent home with one additional dressing to be changed on post op day 7 by the home health RN. You may remove the dressing on post op day 14. Your incision was closed with dermabond, allow the dermabond to fall off naturally once your dressing is removed. Do not pull at the dermabond or disrupt incision healing. You may shower with your dressing but do not submerge in a bath tub. Do not drive or operate machinery until you are released by Dr. Casas. Do not walk without a walker for any reason until you are released by Dr. Casas. Continue to apply ice to the hip intermittently for additional pain relief. Protect your skin with a towel or pillow case. Continue to follow strict total hip replacement precautions. Your first post op appointment was sent to you via mail preoperatively. If you have any questions or are unable to make your appointment, please contact our office for scheduling questions. Your medications have been sent to your pharmacy. You have been sent home with pain medication. Please picker / packer an over the counter stool softener to prevent constipation due to narcotic use. Please keep this in mind during your postoperative recovery. If you are not experiencing regular bowel movements, please contact our office for further instructions. You will continue your home Aspirin 81mg. Please contact our office with any questions/concerns regarding your hip at [phone]. Per Care Coordination: [facility] has been arranged to follow at discharge. [facility] will follow for PT/OT eval and treat. [facility]
== END 2023-07-10 17:34 | disposition home health service (06) ==
LOC: ANHSURGERY 09:07 → ANH2MED 07-10 11:54
PROVIDERS: PCP Family Medicine; Visit Provider Orthopaedic Surgery
PROC: (CPT 27130; principal; 2023-07-09 11:00)
DX: M16.11 Unilateral primary osteoarthritis, right hip (principal); F41.9 Anxiety disorder, unspecified; F43.10 Post-traumatic stress disorder, unspecified; Z79.82 Long term (current) use of aspirin
CPT/HCPCS: 27130; 36415; 73502; 80048; 85025; 97110; 97161; 97165; 97530; A9270; C1713; C1776; J0171; J0690; J1100; J1170; J1885; J2250; J2270; J2405; J2704; J2795; J3010; J3360; J7120

== ENCOUNTER 2023-09-09 11:57 | Outpatient (CLI) | payer OTHER, SELFPAY ==
[2023-09-09 12:36] LABS: Basophils Percent Auto 0.8 % (0.2-1.2); Eosinophils Absolute Auto 0.2 K/mm3 (0-0.3); Hematocrit 36.9 % (42.0-52.0); Hemoglobin 11.4 g/dL (14.0-18.0); Immature Granulocyte Absolute 0.01 K/mm3 (0.00-0.031); Immature Granulocyte Percent A 0.2 % (0-0.5); Lymphocytes Percent Auto 35.9 % (18.3-44.2); Mean Corpuscular HGB Conc 30.9 g/dl (32-36); Mean Corpuscular Hemoglobin 24.6 pg (26-34); Mean Corpuscular Volume 79.5 fl (80-100); Mean Platelet Volume 9.1 fl (7.4-10.4); Monocytes Absolute Auto 0.6 K/mm3 (0.1-0.6); Monocytes Percent Auto 13.1 % (2.6-8.5); Neutrophils Absolute Auto 2.2 K/mm3 (1.3-6.7); Platelet Count Result 292 k/mm3 (150-375); Red Blood Count 4.64 M/mm3 (4.6-6.20); Red Cell Distribution Width 13.2 % (11.5-14.5); White Blood Count 4.7 K/mm3 (4.5-10.0)
[2023-09-09 12:44] LABS: Alanine Aminotransferase 16 U/L (6-50); Albumin Level 4.1 g/dL (3.5-5.1); Alkaline Phosphatase 103 U/L (38-126); Anion Gap 12 mmol/L (8-16); Aspartate Amino Transferase 29 U/L (17-59); Bilirubin,Total 0.4 mg/dL (0.2-1.3); Blood Urea Nitrogen 6 mg/dL (9-20); Calcium 9.2 mg/dL (8.4-10.2); Carbon Dioxide 24 mmol/L (22-30); Chloride 103 mmol/L (98-107); Estimated Glomerular Filt Rate > 60; Glucose 90 mg/dL (65-110); Potassium 3.8 mmol/L (3.4-5.0); Sodium 139 mmol/L (137-145)
[2023-09-09 13:29] LABS: Hepatitis B Surface Antigen Negative (Negative)
[2023-09-09 13:35] LABS: HAV RESULT Negative (Negative); Hepatitis B Core IgM Result Negative (Negative)
[2023-09-09 13:44] LABS: Folic Acid 8.8 ng/mL (2.76->20)
[2023-09-09 13:46] LABS: Hepatitis C Virus Antibody Negative (Negative)
== END 2023-09-09 11:58 | disposition home or self-care (01) ==
LOC: ANHLAB 11:58
PROVIDERS: PCP Family Medicine; Visit Provider Physician Assistant
DX: E53.8 Deficiency of other specified B group vitamins (principal); R76.8 Other specified abnormal immunological findings in serum
CPT/HCPCS: 36415; 80053; 80074; 82607; 82746; 85025

== ENCOUNTER 2023-12-18 12:34 | Outpatient (CLI) | payer OTHER, SELFPAY ==
--- NOTE | ~2023-12-18 | XR_ITS ---
An lateral views of the left hip Clinical history: Pain Findings: No acute fracture or dislocation is seen. There is moderate degenerative change at the supe rior aspect of the left hip joint. There is osteophyte formation as well as prominent subchondral dominic de at the superior acetabulum. Soft tissues are unremarkable. Impression: Moderate degenerative change of the superior aspect of the left hip joint, as detailed above. Reviewed, dictated and finalized at location M. AL SCIENCE INSTRUCTOR Impression: Moderate degenerative change of the superior aspect of the left hip joint, as d etailed above.
[2023-12-18 12:59] LABS: Basophils Percent Auto 0.6 % (0.2-1.2); Eosinophils Absolute Auto 0.3 K/mm3 (0-0.3); Eosinophils Percent Auto 5.4 % (0-4.4); Hematocrit 41.7 % (42.0-52.0); Hemoglobin 12.6 g/dL (14.0-18.0); Immature Granulocyte Absolute 0.02 K/mm3 (0.00-0.031); Immature Granulocyte Percent A 0.4 % (0-0.5); Lymphocytes Absolute Auto 1.89 K/mm3 (0.9-3.2); Lymphocytes Percent Auto 36.2 % (18.3-44.2); Mean Corpuscular HGB Conc 30.2 g/dl (32-36); Mean Corpuscular Hemoglobin 23.3 pg (26-34); Mean Corpuscular Volume 77.2 fl (80-100); Mean Platelet Volume 8.7 fl (7.4-10.4); Monocytes Absolute Auto 0.5 K/mm3 (0.1-0.6); Monocytes Percent Auto 10.3 % (2.6-8.5); Neutrophils Absolute Auto 2.5 K/mm3 (1.3-6.7); Neutrophils Percent Auto 47.1 % (45.5-73.1); Platelet Count Result 256 k/mm3 (150-375); Red Cell Distribution Width 17.1 % (11.5-14.5); White Blood Count 5.2 K/mm3 (4.5-10.0)
[2023-12-18 13:00] LABS: Appearance Urine Clear (Clear); Bilirubin Urine Negative (Negative); Blood Urine Negative (Negative); Color Urine Yellow (Yellow); Glucose Urine UA Negative (Negative); Ketones Urine Negative (Negative); Leukocyte Esterase Ur Negative LEU/UL (NEGATIVE); Nitrate Urine Negative (Negative); Protein Urine Negative (Negative); Specific Grav Ur 1.007 (1.001-1.035); Urobilinogen Urine 0.2 mg/dL (<2.0)
[2023-12-18 13:01] LABS: Add Urine Microscopic? NO
[2023-12-18 13:27] LABS: Alanine Aminotransferase 26 U/L (6-50); Albumin Level 4.5 g/dL (3.5-5.1); Alkaline Phosphatase 94 U/L (38-126); Anion Gap 6 mmol/L (8-16); Aspartate Amino Transferase 48 U/L (17-59); Bilirubin,Total 0.7 mg/dL (0.2-1.3); Blood Urea Nitrogen 11 mg/dL (9-20); Calcium 9.7 mg/dL (8.4-10.2); Carbon Dioxide 27 mmol/L (22-30); Chloride 104 mmol/L (98-107); Cholesterol 210 mg/dL (0-200); Estimated Glomerular Filt Rate > 60; Glucose 100 mg/dL (65-110); HDL Direct 59 mg/dL; Potassium 4.2 mmol/L (3.4-5.0); Sodium 137 mmol/L (137-145); Triglycerides 103 mg/dL (<150)
[2023-12-18 13:35] LABS: Iron 54 ug/dL (49-181)
[2023-12-18 13:38] LABS: LDL Cholesterol Direct 108 mg/dL
[2023-12-18 13:44] LABS: Percent Iron Saturation 12 % (20-50)
[2023-12-18 13:58] LABS: Prostate Specific Antigen 0.9 ng/mL (< OR = 4.0)
[2023-12-18 14:34] LABS: Folic Acid 18.1 ng/mL (2.76->20)
== END 2023-12-18 12:35 | disposition home or self-care (01) ==
PROVIDERS: PCP Family Medicine; Visit Provider Physician Assistant
DX: D64.9 Anemia, unspecified (principal); E53.8 Deficiency of other specified B group vitamins; G45.9 Transient cerebral ischemic attack, unspecified; R35.1 Nocturia; Z00.00 Encounter for general adult medical examination without abnormal findings; M25.552 Pain in left hip
CPT/HCPCS: 36415; 73502; 80053; 80061; 81003; 82607; 82728; 82746; 83540; 83550; 84153; 84443; 85025; G0103

== ENCOUNTER 2024-02-05 14:45 | Outpatient (CLI) | payer OTHER, SELFPAY ==
--- NOTE | 2024-02-05 15:02 | ECG_ITS ---
SEE SCANNED COPY FOR CONFIRMED REPORT MTDD
[2024-02-05 15:10] LABS: Appearance Urine Clear (Clear); Bilirubin Urine Negative (Negative); Blood Urine Negative (Negative); Color Urine Yellow (Yellow); Glucose Urine UA Negative (Negative); Ketones Urine Negative (Negative); Leukocyte Esterase Ur Negative LEU/UL (Negative); Nitrate Urine Negative (Negative); Protein Urine Negative (Negative); Specific Grav Ur 1.018 (1.001-1.035); Urobilinogen Urine 0.2 mg/dL (<2.0); pH Urine 5.5 (5.0-9.0)
[2024-02-05 15:13] LABS: Add Urine Microscopic? NO
[2024-02-05 15:13] LABS: Basophils Percent Auto 0.8 % (0.2-1.2); Eosinophils Absolute Auto 0.3 K/mm3 (0-0.3); Eosinophils Percent Auto 5.6 % (0-4.4); Hematocrit 44.8 % (42.0-52.0); Hemoglobin 14.3 g/dL (14.0-18.0); Immature Granulocyte Absolute 0.01 K/mm3 (0.00-0.031); Immature Granulocyte Percent A 0.2 % (0-0.5); Lymphocytes Percent Auto 42.5 % (18.3-44.2); Mean Corpuscular HGB Conc 31.9 g/dl (32-36); Mean Corpuscular Volume 81.6 fl (80-100); Mean Platelet Volume 8.6 fl (7.4-10.4); Monocytes Absolute Auto 0.6 K/mm3 (0.1-0.6); Monocytes Percent Auto 10.8 % (2.6-8.5); Neutrophils Absolute Auto 2.1 K/mm3 (1.3-6.7); Neutrophils Percent Auto 40.1 % (45.5-73.1); Platelet Count Result 245 k/mm3 (150-375); Red Blood Count 5.49 M/mm3 (4.6-6.20); Red Cell Distribution Width 18.6 % (11.5-14.5); White Blood Count 5.2 K/mm3 (4.5-10.0)
[2024-02-05 16:12] LABS: Anion Gap 8 mmol/L (4-12); Blood Urea Nitrogen 16 mg/dL (9-20); Calcium 9.7 mg/dL (8.4-10.2); Carbon Dioxide 27 mmol/L (22-30); Chloride 105 mmol/L (98-107); Estimated Glomerular Filt Rate > 60; Glucose 87 mg/dL (65-110); Sodium 140 mmol/L (137-145)
== END 2024-02-05 14:46 | disposition home or self-care (01) ==
LOC: ANHLAB 14:46
PROVIDERS: PCP Family Medicine; Visit Provider Nurse Practitioner Family
DX: G45.9 Transient cerebral ischemic attack, unspecified (principal); F10.10 Alcohol abuse, uncomplicated; E53.8 Deficiency of other specified B group vitamins; R53.83 Other fatigue
CPT/HCPCS: 36415; 80048; 81003; 85025; 93005

== ENCOUNTER 2024-02-11 08:13 | Outpatient (CLI) | payer OTHER, SELFPAY ==
[2024-02-11 09:23] LABS: Appearance Urine Clear (Clear); Bilirubin Urine Negative (Negative); Blood Urine Negative (Negative); Color Urine Yellow (Yellow); Glucose Urine UA Negative (Negative); Ketones Urine Negative (Negative); Leukocyte Esterase Ur Negative LEU/UL (Negative); Nitrate Urine Negative (Negative); Protein Urine Negative (Negative); Specific Grav Ur 1.005 (1.001-1.035); Urobilinogen Urine 0.2 mg/dL (<2.0); pH Urine 6.5 (5.0-9.0)
[2024-02-11 09:27] LABS: Add Urine Microscopic? NO
[2024-02-11 09:31] LABS: Albumin Level 4.6 g/dL (3.5-5.1)
[2024-02-11 09:34] LABS: Urine Cotinine NEGATIVE
[2024-02-11 09:34] LABS: Hemoglobin A1C 5.1 % (<5.7); Partial Thromboplastin Time 34.5 Seconds (22.3-36.8); Prothrombin Time 13.7 Seconds (11.1-14.7)
[2024-02-11 10:59] LABS: MRSA (PCR) NOT DETECTED (NOT DETECTE)
== END 2024-02-11 08:14 | disposition home or self-care (01) ==
LOC: ANHSURGERY 08:16
PROVIDERS: PCP Family Medicine; Visit Provider Orthopaedic Surgery
DX: M16.12 Unilateral primary osteoarthritis, left hip (principal); Z01.818 Encounter for other preprocedural examination
CPT/HCPCS: 80307; 81003; 82040; 83036; 85610; 85730; 86850; 86900; 86901; 87641

== ENCOUNTER 2024-02-18 01:00 | Day surgery (SDC) | payer OTHER, SELFPAY ==
[2024-02-11 08:24] VITALS: BMI 29.0
--- NOTE | 2024-02-11 08:36 | PC.NURSE ---
Report to the Outpatient Waiting Room, entrance under the green pavilion located off [facility], at time _0900 on date ___02/18/24____. Planned Procedure Time: __1100 . Time changes happen often and if your time is changed the preop area will call you the afternoon before. - You and your visitor will be asked to self-screen and do not enter if you have any COVID symptoms. - A mask is optional within the hospital at this time. Patients may have clear liquids (water, carbonated beverages, clear teas, apple juice) until 3 hours prior to surgery (0800)with a maximum of 20 ounces. - No food from midnight until time of surgery - Infants may have breast milk until 4 hours before surgery, formula 6 hours prior to surgery. - Children will be allowed to drink immediately following surgery. If applicable, please bring a bottle or sippy cup to assist with drinking. Juice, water, soda, and popsicles are readily available. For infants on formula, please bring formula the day of surgery. Pacifiers are allowed. Take the following medications with a SIP of water the morning of surgery: ___DULOXETINE DO NOT STOP ANY OF YOUR OTHER PRESCRIPTION MEDICATIONS PRIOR TO SURGERY ?EXCEPT THE FOLLOWING Medications to discontinue per physician __HOLD ALL VITAMINS AND SUPPLEMENTS 3 DAYS PRE OP LAST DOSE 02/14/24. ALEVE PER DR MCDOWELL___ Please no make-up, nail latvian, hairspray, perfume, deodorant, or body powder the day of surgery. No jewelry (including any body piercings) or valuables the day of surgery, leave them at home. Please take a shower or bath the night before, or the morning of, surgery with an antibacterial soap. Wear comfortable, loose fitting clothing. Children are encouraged to wear pajamas. - Jewelry must be removed prior to entering the operating room. Rings and piercings that are not removed may be cut off. - The hospital will not accept responsibility for valuables. - Please leave all valuables, including medications, at home the day of surgery. If you are going home after surgery, a licensed diesel truck driver must drive you home. - NO public transportation without another adult if you receive anesthesia. - We recommend that an adult stay with you for 24 hours following discharge. - We also recommend that you do not drive, make important decision, drink alcoholic beverages, or take any drugs that were not prescribed by your health care provider for at least 24 hours after your discharge time. Follow any additional instructions given to you from your surgeon. If you or anyone in your household have experienced Covid symptoms in the past week, please notify your surgeon or the nurse liaison at the phone number below for possible testing. VERBAL AND WRITTEN instructions given to ___PATIENT and asked if any additional questions and then verbalized understanding. Patient advised to call surgeon office or pre surgery nurse liaison [phone] if any additional questions.
[2024-02-11 08:58] VITALS: BP 135/89; PULSE 74; RESP 18; TEMP 36.7; O2SAT 99
[2024-02-18] VITALS (13 sets, daily range): BP systolic 99–130; BP diastolic 51–87; PULSE 70–85; RESP 11–20; TEMP 36.1–36.8; O2SAT 98–100; BMI 28.8
--- NOTE | ~2024-02-18 | XR_ITS ---
EXAMINATION: XR hip LT min 2V DATE: 02/18/2024 15:14 INDICATION: Total left hip arthroplasty. Postop. TECHNIQUE: 2 views of left hip were obtained. COMPARISON: Left hip radiographs 02/05/2024 FINDINGS: There is a total left hip arthroplasty in near-anatomic alignment. No fracture. IMPRESSION: 1. Total left hip arthroplasty in near-anatomic alignment. Reviewed, dictated and finalized at location E.
--- NOTE | 2024-02-18 07:20 | WPDHPUPDATE1 ---
History and Physical Update Update Date/Time: 02/18/24 07:20 History and Physical has been reviewed, including an updated exam of the patient. There are NO changes in the patient's condition. Risks, benefits, and alternatives have been discussed and questions answered. Patient agrees to proceed with procedure.
[2024-02-18] MEDS: LACTATED RINGERS 1,000 ML 30 ML IV CONT ×3 (09:50→15:29)
--- NOTE | 2024-02-18 10:08 | WPDANESEPPF ---
Anes - Initial Pre Proc Eval Procedure: Operation Date: 02/18/24 11:00 Proposed Procedures p Left Total Hip Arthroplasty - Kai Casas MD Date/Time: 02/18/24 10:08 Surgeon: Kai Casas MD Pre Op Diagnosis: left hip djd Patient Data Age: 58 Gender: M Height: 1.75 m Weight: 89.3 kg Last Vital Signs Temp 98.0 F 02/11/24 08:58 Pulse 74 02/11/24 08:58 Resp 18 02/11/24 08:58 BP 135/89 02/11/24 08:58 Pulse Ox 99 02/11/24 08:58 O2 Del Method Room Air 02/11/24 08:58 Allergies Allergy/AdvReac Type Severity Reaction Status Date / Time No Known Allergies Allergy Unknown Verified 02/11/24 08:20 Home Medications Medication Instructions Recorded Confirmed Type duloxetine 60 mg capsule,delayed 90 mg PO DAILY #30 caps 12/20/20 02/11/24 Rx release (Cymbalta) vitamin B complex (B 1 tablet PO DAILY #90 tabs 07/04/22 02/11/24 Rx Complex-Vitamin B12 tablet) multivitamin 1 tablet PO DAILY 06/26/23 02/11/24 History naproxen sodium 220 mg capsule 220 mg PO Q12H PRN Pain 06/26/23 02/11/24 History (Aleve) ferrous sulfate 325 mg (65 mg 325 mg PO .every other day #45 tabs 12/19/23 02/11/24 Rx iron) tablet,delayed release chlorhexidine gluconate 4 % 1 applic topical ONCE #237 mL 02/11/24 02/11/24 Rx topical liquid (Hibiclens) Patient hx anesthesia problems: none Family hx anesthesia problems: none Results Review: All pre-operative results and documents have been reviewed as part of the pre-operative evaluation. [facility] Past Medical History Medical History (Updated 02/05/24 @ 14:35 by CARLO Brewster) Anxiety Degenerative joint disease of left hip Degenerative joint disease of right hip Other fatigue Post traumatic stress disorder (PTSD) Surgical History Surgical History History of left knee surgery Left knee avulsion fracture- 2000 Dr. Lincoln History of right knee surgery Rt knee quad repair-2004 Dr. Apple History of surgery on right wrist 4 Corner fusion -2009- Dr. Nur S/P total right hip arthroplasty Family History Family History Father Family history of Alzheimer's disease Mother Family history of malignant neoplasm of breast in first degree relative Family history of malignant neoplasm of ovary Grandparent Cerebrovascular accident Family history of heart disease in male family member before age 55 Other Family history of malignant neoplasm Social History Social History Years smoked: 0 Smoking status: Never smoker Second hand tobacco smoke exposure: No Additional smoking assessment comments: DENIES ANY FORM OF TOBACCO USE Alcohol intake: never Drinks per week: 3 Substance use: never Substance use type: does not use Lack of Transportation: No Lack of Food: Never True Current Housing: I Have Housing Concerned About Future Housing: No Difficulty Paying Gas/Electric Bills: No Difficulty Paying for Meds: No Currently Unemployed: No Education: High School Diploma/GED Difficulty w/ Childcare or Family Care: No Living arrangements: with family Occupation/Education: occupation Gender identity (if verbalized by the patient): Male Sexual Orientation (if Verbalized by the Patient): Straight or Heterosexual Spiritual care concerns: No Anes - Eval Final PreProcedure Day of Procedure 02/18/24 10:08 Patient weight: normal Heart: regular rate and rhythm Lungs: clear to auscultation Airway: Mallampati scale class II Neurological: alert and oriented Last oral intake: >/= 8 hours ASA classification: II Emergent: no Anesthetic plan: proceed Anesthesia type and monitoring: general ETT and standard monitoring Results Review: All pre-operative results and documents have been reviewed as part of the pre-operative evaluation. Informed Consent: The
[2024-02-18] MEDS: ACETAMINOPHEN 500 MG TABLET 1000 MG PO (10:10)
[2024-02-18] MEDS: TRANEXAMIC ACID 1,000MG/ISO100 1,000 MG/100 ML BAG 200 MG IVPB (10:53)
[2024-02-18] MEDS: ceFAZolin 2 GM/D5W 50 ML 2 GM/50 ML BAG IVPB ×2 (11:27→20:41)
[2024-02-18] MEDS: SODIUM CHLORIDE 0.9% IV 37.7 ML, MORPHINE SULFATE INJ (*CRX) 2 MG, ROPivacaine HCL 1% 2... INFILTRATE (13:19)
[2024-02-18] MEDS: TRANEXAMIC ACID 1,000 MG/10 ML AMPUL 1000 MG IV PUSH (13:51)
--- NOTE | 2024-02-18 14:47 | W.PM.PROC2 ---
Procedure Note - Detailed Date of Procedure 02/18/24 Pre-op Diagnosis left hip djd Post-op Diagnosis Same Procedure Performed L ROSALINDA Surgeon Kai Casas MD Anesthesia General Description of Procedure THE PATIENT WAS TAKEN TO THE OPERATING ROOM IN STABLE CONDITION AND WAS PLACED IN THE LATERAL DECUBITUS AND THE LEFT LOWER EXTREMITY WAS PREPPED AND DRAPED IN THE STERILE FASHION. INCISION WAS MADE IN THE POSTERIOR LATERAL SIDE OF THE HIP, DOWN TO THE FASCIA LAYER. THE FASCIA WAS INCISED. THE HIP WAS EXPOSED. THE SHORT EXTERNAL ROTATORS WERE EXPOSED. THE SCIATIC NERVE WAS IDENTIFIED. INCISION WAS MADE THROUGH THE SHORT EXTERNAL ROTATORS AND THE CAPSULE OF THE HIP JOINT. THE HIP WAS DISLOCATED. AN OSTEOTOMY WAS MADE TO THE FEMORAL NECK ABOUT 1 CM PROXIMAL TO THE LESSER TROCHANTER. THE ACETABULUM WAS EXPOSED. THERE WAS SEVERE DJD SEEN. BEGINNING WITH A 47 REAMER THE ACETABULUM WAS REAMED TO 53 MM. A 53 MM TRIAL WAS PLACED IN 35 DEG OF ABDUCTION AND ANTEVERSION WAS IN ALIGNMENT WITH THE TRANS ACETABULAR LIGAMENT. THE FIT WAS EXCELLENT. THE TRIAL WAS REMOVED. A 54 MM BIOMET G7 COMPONENT WAS THEN TAPPED IN TO PLACE IN 35 DEG OF ABDUCTION AND ANTEVERSION IN ALIGNMENT WITH THE TRANSVERSE ACETABULAR LIGAMENT. THE FIT WAS EXCELLENT. THE ACETABULAR LINER WAS PLACED AND CHECKED FOR STABILITY. NEXT THE FEMUR WAS PREPARED WITH INITIAL CANAL FINDER THEN SEQUENTIAL BROACHING WITH A TAPERLOC HIP SYSTEM, UNTIL AN 11 BROACH FIT WELL IN 15 OF ANTEVERSION. A +3 HIGH OFFSET NECK WITH 36 MM HEAD TRIAL WAS PLACED. THE SHUCK TEST WAS EXCELLENT AND THE STABILITY IN FLEXION AND ROTATION WAS EXCELLENT. LEG LENGTHS WERE GROSSLY EQUAL. TRIALS WERE REMOVED. A BIOMET TAPERLOC 11 STEM WAS PLACED WITH A HIGH OFFSET NECK THE FIT WAS EXCELLENT IN 15 DEG OF ANTEVERSION. A +3 CERAMIC 36 MM FEMORAL CERAMIC HEAD WAS PLACED. THE HIP WAS TRIALED AND THE STABILITY WAS EXCELLENT WERE THE LEG LENGTHS AND THE SHUCK TEST. THE WOUND WAS IRRIGATED WITH STERILE BETADINE AND WATER FOR 3 MIN. THEN WASHED AGAIN. THE CAPSULE AND THE EXTERNAL ROTATORS WERE APPROXIMATED WITH NUMBER 1 VICRYL. THE FASCIA WITH No 2 QUIL AND THE SUB CUTANEOUS LAYER WITH 2-0 ABSORBABLE SUTURE WITH A RUNNING 3-0 SUBCUTICULAR LAYER WELL. DERMABOND WAS PLACED AND STERILE DRESSING WAS APPLIED. PATIENT WAS PLACED BACK ON TO THE SUPINE POSITION AND WAS EXTUBATED Estimated Blood Loss 1,000 Complications No immediate complications Condition Stable Disposition PACU
[2024-02-18] MEDS: fentaNYL CITRATE INJ (*CRX) 100 MCG/2 ML VIAL 25 MCG IV PUSH ×8 (14:58→15:25)
[2024-02-18] MEDS: KETOROLAC 30 MG/ML VIAL (*BKC) IV PUSH (15:03)
[2024-02-18] MEDS: HYDROmorphone HCL INJ (*CRX) 1 MG/ML SYR 0.25 MG IV PUSH ×7 (15:30→16:30)
--- NOTE | 2024-02-18 17:05 | PC.NURSE ---
This patient, Buzz Monae, was admitted to Medical Room 344-01. Patient/family oriented to hospital policies and general routines including ID bracelet, bed and alarms, visiting hours, pain management, procedures, bathroom and other care routines, personal items, smoking policy, room service/diet, and visiting hours. Information on how to activate the Rapid Response Team has been discussed. Patient/Family are encouraged to report perceived risks to care and to ask questions if they do not understand what they are told or what they should do.
[2024-02-18] MEDS: ASPIRIN 325 MG ENTERIC TABLET PO (20:40)
[2024-02-18] MEDS: oxyCODONE/ACETAMINOPHEN (*CRX) 5-325 MG TABLET 1 TABLET PO (20:40)
[2024-02-18] MEDS: FAMOTIDINE 20 MG TABLET PO (20:40)
[2024-02-18] MEDS: KETOROLAC 15 MG/ML VIAL (*BKC) IV PUSH (23:19)
[2024-02-19 02:30] VITALS: BP 102/66; PULSE 85; RESP 14; TEMP 36.9; O2SAT 97
[2024-02-19] MEDS: KETOROLAC 15 MG/ML VIAL (*BKC) IV PUSH ×2 (05:28→12:33)
[2024-02-19] MEDS: oxyCODONE/ACETAMINOPHEN (*CRX) 5-325 MG TABLET 1 TABLET PO (05:28)
[2024-02-19 05:56] LABS: Basophils Percent Auto 0.2 % (0.2-1.2); Eosinophils Percent Auto 0.1 % (0-4.4); Hematocrit 36.1 % (42.0-52.0); Hemoglobin 11.2 g/dL (14.0-18.0); Immature Granulocyte Absolute 0.04 K/mm3 (0.00-0.031); Immature Granulocyte Percent A 0.4 % (0-0.5); Lymphocytes Percent Auto 12.3 % (18.3-44.2); Mean Corpuscular Hemoglobin 26.5 pg (26-34); Mean Corpuscular Volume 85.3 fl (80-100); Mean Platelet Volume 9.5 fl (7.4-10.4); Monocytes Absolute Auto 1.6 K/mm3 (0.1-0.6); Neutrophils Absolute Auto 8.3 K/mm3 (1.3-6.7); Platelet Count Result 238 k/mm3 (150-375); Red Blood Count 4.23 M/mm3 (4.6-6.20); Red Cell Distribution Width 17.2 % (11.5-14.5); White Blood Count 11.4 K/mm3 (4.5-10.0)
[2024-02-19 06:12] LABS: Anion Gap 4 mmol/L (4-12); Blood Urea Nitrogen 20 mg/dL (9-20); Calcium 8.7 mg/dL (8.4-10.2); Carbon Dioxide 27 mmol/L (22-30); Chloride 103 mmol/L (98-107); Estimated CRCL calculation 47 ml/min; Estimated Glomerular Filt Rate 58; Glucose 112 mg/dL (65-110); Potassium 4.3 mmol/L (3.4-5.0); Sodium 134 mmol/L (137-145)
[2024-02-19] MEDS: ceFAZolin 2 GM/D5W 50 ML 2 GM/50 ML BAG IVPB ×2 (06:22→12:35)
[2024-02-19 06:25] VITALS: BP 102/63; PULSE 96; RESP 16; TEMP 37; O2SAT 98
[2024-02-19] MEDS: SENNA/DOCUSATE SODIUM TABLET 2 TAB PO (08:45)
[2024-02-19] MEDS: FAMOTIDINE 20 MG TABLET PO (08:45)
[2024-02-19] MEDS: polyethylene glycoL 3350 17 GM POWD.PACK PO (08:46)
[2024-02-19] MEDS: ASPIRIN 325 MG ENTERIC TABLET PO (08:46)
--- NOTE | 2024-02-19 09:22 | PM.PNORT ---
Progress Note: A&P Assessment and Plan (1) S/P total left hip arthroplasty: Code(s): Z96.642 - Presence of left artificial hip joint Status: Acute Assessment and Plan: POD #1 : Left ROSALINDA Continue PT/OT. WBAT. Walker. HIGH FALL RISK. Continue pain control. Ice Hip. Protect skin. DVT prophylaxis with Aspirin. SCDs. Incentive Spirometry Use reviewed. Monitor Dressing. Change prior to discharge. Bowel Regimen. Dispo: Home with Home Health pending progress with PT/OT Time Spent With Patient Time: Reviewed history, exam, radiographs and current labs with attending MD and covering surgeon, Dr. Casas, who agrees with current plan as indicated above. No further recommendations from Dr. Casas at this time. Subjective Subjective Date/Time Seen: 02/19/24 09:22 Post Op day: 1 Interval history: POD #1: Left ROSALINDA Patient doing well. Pain well controlled. No new concerns. Hopeful for d/c home today. Review of Systems Constitutional: Constitutional: Denies chills, Denies fatigue, Denies fever(s), Denies night sweats and Denies weakness Cardiovascular: Cardiovascular: Denies chest pain, Denies lightheadedness, Denies palpitations and Denies dyspnea Respiratory: Respiratory: Denies cough, Denies dyspnea and Denies wheezing Gastrointestinal: Gastrointestinal: Denies abdominal pain, Denies diarrhea, Denies nausea and Denies vomiting Musculoskeletal: Musculoskeletal: Reports arthralgias (left hip ), Reports joint swelling (left hip ) and Denies numbness Neurologic: Denies numbness and Denies weakness Endocrine: Endocrine: Denies fatigue and Denies palpitations Allergic/Immunologic: Allergic/Immunologic: Denies wheezing Exam Const: General: comfortable and no acute distress Orientation/consciousness: patient oriented x3 Limitations: no limitations Resp: Effort & Inspection: normal respiratory effort Cardio: Rate: regular rate Rhythm: regular rhythm GI: Inspection: non-distended Skin: General skin exam: normal color and wounds noted (incision left hip C/D/I ) Wounds: wounds noted (incision left hip C/D/I ) Neuro: General: patient oriented x3 Extrem: Left lower extremity: hip/thigh Details: tenderness Location: of the hip Location: laterally and anteriorly, swelling (thigh soft ) Location: of the hip (lateral. ), abnormal ROM (limitations with internal/external rotation and flexion/extension due to recent surgical intervention ) and other (incision lateral hip c/d/i. ), knee Details: normal to inspection and normal ROM; no tenderness and no swelling, lower leg (Negative Michael's Sign ) Details: no edema, ankle (+ankle dorsiflexion/plantarflexion ) Details: normal to inspection, no edema and normal ROM; no tenderness, no swelling and no warmth and foot Details: normal capillary refill, toes with normal ROM, vascular exam Details: dorsalis pedis pulse present and motor-sensory exam light-touch normal in all toes; no tenderness, no ecchymosis and no crepitus Psych: Mental Status: mental status grossly normal Affect: normal affect Objective Data Vital Signs Vital Signs: Vital Signs - 24 hr 02/18/24 14:44 02/18/24 15:00 02/18/24 15:15 Temperature 36.1 C L Pulse Rate 80 80 78 Respiratory Rate 11 L 11 L 12 Blood Pressure 106/76 103/81 116/80 Pulse Oximetry 100 100 98 Oxygen Delivery Simple Face Mask Room Air Room Air Oxygen Flow Rate 8 02/18/24 15:30 02/18/24 15:45 02/18/24 16:00 Temperature Pulse Rate 79 85 79 Respiratory Rate 16 20 Blood Pressure 123/83 99/74 L 119/87 Pulse Oximetry 100 100 100 Oxygen Delivery Nasal Cannula Nasal Cannula Nasal Cannula Oxygen Flow Rate 2 2 2 02/18/24 16:15 02/18/24 16:30 02/18/24 16:45 Temperature 36.8 C Pulse Rate 81 84 79 Respiratory Rate 20 16 Blood Pressure 109/74 108/51 L 105/71 Pulse Oximetry 100 100 100 Oxygen Delivery Nasal Cannula Nasal Cannula Oxygen Flow Rate 2 2 02/18/24 17:15 02/18/24 18:30 02/18/24 22:30 Tem
--- NOTE | 2024-02-19 09:55 | PM.DS ---
DS: Admitting Diagnosis Discharge Date 02/19/24 Admitting Diagnosis Left Hip DJD DS: Discharge Diagnosis Discharge Diagnosis (1) S/P total left hip arthroplasty: Code(s): Z96.642 - Presence of left artificial hip joint Status: Acute Assessment and Plan: POD #1 : Left ROSALINDA Continue PT/OT. WBAT. Walker. HIGH FALL RISK. Continue pain control. Ice Hip. Protect skin. DVT prophylaxis with Aspirin. SCDs. Incentive Spirometry Use reviewed. Monitor Dressing. Change prior to discharge. Bowel Regimen. Dispo: Home with Home Health pending progress with PT/OT DS: Summary Hospital Course Reason for hospitalization: Left ROSALINDA Hospital Course: 58 year old male admitted s/p Left ROSALINDA for postoperative medical management, pain control and mobilization with PT/OT. Patient progressed well with PT/OT. Pain and vitals remained stable throughout. The patient has been cleared to be discharged home with home health at this time. All discharge care instructions reviewed at depth. New medications reviewed. Follow up planned for 3 weeks in the outpatient orthopedic clinic with Dr. Casas. Dr. Casas in agreement with safe discharge at this time. n Status at Discharge Functional status at discharge: uses cane/walker Overall status at discharge: patient is progressing back to baseline Time Spent with Patient Time attestation: Total time spent providing and/or coordinating discharge services: Exam Const: General: comfortable and no acute distress Orientation/consciousness: patient oriented x3 Limitations: no limitations Resp: Effort & Inspection: normal respiratory effort Cardio: Rate: regular rate Rhythm: regular rhythm GI: Inspection: non-distended Skin: General skin exam: normal color and wounds noted (incision left hip C/D/I ) Wounds: wounds noted (incision left hip C/D/I ) Neuro: General: patient oriented x3 Extrem: Left lower extremity: hip/thigh Details: tenderness Location: of the hip Location: laterally and anteriorly, swelling (thigh soft ) Location: of the hip (lateral. ), abnormal ROM (limitations with internal/external rotation and flexion/extension due to recent surgical intervention ) and other (incision lateral hip c/d/i. ), knee Details: normal to inspection and normal ROM; no tenderness and no swelling, lower leg (Negative Michael's Sign ) Details: no edema, ankle (+ankle dorsiflexion/plantarflexion ) Details: normal to inspection, no edema and normal ROM; no tenderness, no swelling and no warmth and foot Details: normal capillary refill, toes with normal ROM, vascular exam Details: dorsalis pedis pulse present and motor-sensory exam light-touch normal in all toes; no tenderness, no ecchymosis and no crepitus Psych: Mental Status: mental status grossly normal Affect: normal affect DS: Data Data Completed and Pending Labs on day of discharge: Labs from last 24 hours 02/19/24 05:24 WBC 11.4 H RBC 4.23 L Hgb 11.2 L D Hct 36.1 L MCV 85.3 MCH 26.5 MCHC 31.0 L RDW 17.2 H Plt Count 238 MPV 9.5 Immature Gran % (Auto) 0.4 Neut % (Auto) 73.0 Lymph % (Auto) 12.3 L [place] % (Auto) 14.0 H Eos % (Auto) 0.1 Baso % (Auto) 0.2 Lymph # (Auto) 1.40 [place] # (Auto) 1.6 H Eos # (Auto) 0.0 Baso # (Auto) 0.0 Abs Immat Gran (auto) 0.04 H Absolute Neuts (auto) 8.3 H Absolute Nucleated RBC 0.000 Nucleated RBC % 0.0 Sodium 134 L Potassium 4.3 Chloride 103 Carbon Dioxide 27 Anion Gap 4 BUN 20 Creatinine 1.50 H Estim Creat Clear Calc 47 Estimated GFR 58 L Glucose 112 H Calcium 8.7 Discharge Plan Discharge Patient Disposition: Home Health Service Discharge Instructions: Post Op Total Hip Replacement Instructions Dr. Kai Casas [phone] Your dressing will be changed prior to your discharge. You will be sent home with one additional dressing to be changed on post op day 7 by the home health RN. You may remove the dressing on post op day 14. Your incisi
--- NOTE | 2024-02-19 13:18 | WPDANESPN ---
Anes - Prog Note Post-Op Date/Time: 02/19/24 13:18 Vital Signs: Last Vital Signs Temp 37.0 C 02/19/24 06:25 Pulse 96 02/19/24 06:25 Resp 16 02/19/24 06:25 BP 102/63 02/19/24 06:25 Pulse Ox 98 02/19/24 06:25 O2 Del Method Room Air 02/19/24 09:14 O2 Flow Rate 2 02/18/24 16:30 Pain Score (VAS): 2 I/O: Intake & Output 02/18/24 02/19/24 02/19/24 23:59 07:59 15:59 Intake Total 550 450 350 Balance 550 450 350 Laboratory Tests 02/19/24 05:24 02/19/24 05:24 02/19/24 05:24 WBC 11.4 H RBC 4.23 L Hgb 11.2 L D Hct 36.1 L MCV 85.3 MCH 26.5 MCHC 31.0 L RDW 17.2 H Plt Count 238 MPV 9.5 Immature Gran % (Auto) 0.4 Neut % (Auto) 73.0 Lymph % (Auto) 12.3 L [place] % (Auto) 14.0 H Eos % (Auto) 0.1 Baso % (Auto) 0.2 Lymph # (Auto) 1.40 [place] # (Auto) 1.6 H Eos # (Auto) 0.0 Baso # (Auto) 0.0 Abs Immat Gran (auto) 0.04 H Absolute Neuts (auto) 8.3 H Absolute Nucleated RBC 0.000 Nucleated RBC % 0.0 Sodium 134 L Potassium 4.3 Chloride 103 Carbon Dioxide 27 Anion Gap 4 BUN 20 Creatinine 1.50 H Estim Creat Clear Calc 47 Estimated GFR 58 L Glucose 112 H Calcium 8.7 Patient Feedback: Patient satisfied with anesthetic care.
== END 2024-02-19 15:29 | disposition home health service (06) ==
LOC: ANHSURGERY 08:59 → ANH3MED 16:47
PROVIDERS: PCP Family Medicine; Visit Provider Orthopaedic Surgery
PROC: (CPT 27130; principal; 2024-02-18 11:00)
DX: M16.12 Unilateral primary osteoarthritis, left hip (principal); F43.10 Post-traumatic stress disorder, unspecified; F41.9 Anxiety disorder, unspecified
CPT/HCPCS: 27130; 36415; 73502; 80048; 85025; 97110; 97161; 97165; A9270; C1776; J0171; J0690; J1100; J1170; J1885; J2250; J2270; J2405; J2704; J2795; J3010; J7120

== ENCOUNTER 2025-08-15 06:50 | Outpatient (CLI) | payer OTHER, SELFPAY ==
--- OUTSIDE RECORDS SUMMARY | 2025-08-15 06:55 | XMS_ITS | Clinical Summary ---
Author Organization [facility] Address [address] [place] [address] Care Team Providers Care Family Practice Nurse Practitioner Name Role Phone Aiden Alvarado MD Primary Care Provider [phone] Source Comments [facility],non-owned Affiliates and Associated Physician Practices is amultiple site organization consisting of ambulatory clinics and hospital sitesin [place], [place] and [place]. This disclosure is being madepursuant to the Care Everywhere program and may not contain all information available regarding this patient. Last updated 18.[facility] Allergies No known active allergies Medications * Be aware that medications may not be up to date on this document. Alwaysverify current medications with the patient. Cyanocobalamin 1000 MCG Take 2,000 mcg by mouth once daily 2 Active diclofenac sodium (Voltaren) 1 % gel Apply 2 g to affected area 4 times daily as needed 2 Active DULoxetine (Cymbalta) 30 MG capsule Take 90 mg by mouth once daily 2 Active vitamin D3 (Cholecalcifero l) 25 MCG (1000 UNITS) tablet Take 1,000 Units by mouth once daily Active ascorbic acid (Vitamin C) 500 MG tablet Take 500 mg by mouth once daily Active thiamine (Vitamin B-1) 100 MG tablet Take 1 (one) tablet by mouth once daily 30 tablet 2 Active pantoprazole EC (Protonix) 40 MG tablet Take 1 (one) tablet by mouth daily before breakfast 21 tablet 2 Active folic acid (Folvite) 1 MG tablet Take 1 (one) tablet by mouth once daily 30 tablet 2 Active aspirin EC (Ecotrin) 81 MG tablet Take 1 (one) tablet by mouth once daily 100 tablet 2 Active Active Problems Problem Noted Date Diagnosed Date Acute right-sided weakness 06/30/2022 Acute CVA (cerebrovascular accident) 06/30/2022 Social History Tobacco Use Types Packs/Day Years Used Date Smoking Tobacco: Never Assessed Sex and Gender Information Value Date Recorded Sex Assigned at Not on file Legal Sex Male 7:53 PM CDT Gender Identity Not on file Sexual Orientation Not on file Last Filed Vital Signs Vital Sign Reading Time Taken Comments Blood Pressure 131/83 07/02/2022 8:28 AM CDT Pulse 67 07/02/2022 12:02 PM CDT Temperature 36.6 C (97.8 F) 07/02/2022 8:28 AM CDT Respiratory Rate 18 07/02/2022 8:28 AM CDT Oxygen Saturation 99% 07/02/2022 8:28 AM CDT Inhaled Oxygen Concentration - - Weight 72.6 kg (160 lb) 07/02/2022 1:00 PM CDT Height 175.3 cm (5' 9) 07/02/2022 1:00 PM CDT Body Mass Index 23.63 07/02/2022 1:00 PM CDT Plan of Treatment Health Maintenance Due Date Last Done Comments COLOGUARD (AGES 45-75) - COL ON CA SCREENING 1963 COLON MONITORING 1963 COLONOSCOPY - COLON CA SCREENING 1963 CT COLONOGRAPHY - COLON CA SCREENING 1963 Colorectal Cancer Screening 1963 FIT - COLON CA SCREENING 1963 FLEX SIG - COLON CA SCREENING 1963 HIV SCREENING 1978 HEPATITIS C SCREENING 05/09/1981 DTAP/TDAP/TD VACCINES (1 - Tdap) 1982 PNEUMOCOCCAL VACCINE 50+ (1 of 1 - PCV) 2013 ZOSTER VACCINE (1 of 2) 2013 DEPRESSION SCREENING 10/27/2024 COVID-19 VACCINE (4 - 2024-2 6 season) 2025 09/08/2021, 01/26/2021, 01/07/2021 INFLUENZA VACCINE (#1) 2025 07/30/2018 LIPID TESTING 07/01/2027 07/01/2022 Respiratory Syncytial Virus (RSV) Vaccine Pt: or over 60 yrs (1 - 1-dose 75+ series) 2038 HEPATITIS B VACCINE Aged Out No longe r eligible based on patient's age to complete this topic HIB VACCINE Aged Out No longer eligi ble based on patient's age to complete this topic HPV VACCINE Aged Out No longer eligi ble based on patient's age to complete this topic MENINGOCOCCAL (Group B) VACCINE SHARED DECISION-MAKING Aged Out No longer eligible based on patient's age to complete this topic MENINGOCOCCAL GROUPS A/C/Y/W VACCINE Aged Out No longer eligible b ased on patient's age to complete this topic Procedures Procedure Name Priority Date/Time Associated Diagnosis Comments LIPID PROFILE STAT 07/01/2022 3:53 AM CDT Acute CVA (cerebrovascular accident) from Last 3 Months or Most Recently Relevant to Health Maintenance Results * LIPID PROFILE (07/01/2022 3:53 AM CDT) Pathologist [facility] Cholesterol 146 <200 mg/dL 07/01/2022 4:17 AM CDT [facility] Triglycerides 85 <150 mg/dL 07/01/2022 4:17 AM CDT [facility] HDL Cholesterol 43 >40 mg/dL 2 4:17 AM CDT [facility] LDL Calculated 86 <130 mg/dL 07/01/2022 4:17 AM CDT [facility] VLDL Calculated 17 <=30 mg/dL 2 4:17 AM CDT [facility] Chol HDL Ratio 3.4 <4.5 07/01/2022 4:17 AM CDT [facility] LDL/HDL Ratio 2.0 <5.0 07/01/2022 4:17 AM CDT [facility] Blood BLOOD SPECIMEN / Unknown Lab Venipuncture / Unknown 07/01/2022 3:53 AM CDT 07/01/2022 3:58 AM CDT us Neptali Quigley DO LAB - CHEMISTRY ORDERAB LES Final Result [facility] [address] [place] [address] from Last 3 Months or Most Recently Relevant to Health Maintenance Insurance [facility] [place] Address: [facility] CLAIMS [facility] [address] [place] [address] Advance Directives * Full Code (Latest Code Status on File) Date Activated Date Inactivated Comments 06/30/2022 8:59 PM 07/02/2022 3:42 PM Care Teams Family Practice Nurse Practitioner Relationship Specialty Start Date End Date Aiden Alvarado MD [address] [place] [address] PCP - General 01/21/23
--- OUTSIDE RECORDS SUMMARY | 2025-08-15 06:55 | XMS_ITS | Clinical Summary ---
Author Organization [facility] on Address [address] [place] [id number] Care Team Providers Care Experience Planning Strategist Name Role Phone Unavailable Primary Care Provider Unavailabl e Allergies No known active allergies Medications DULoxetine (CYMBALTA) 60 mg Capsule, Delayed Release(E.C.) Take 60 mg by mouth daily. Active cyclobenzaprine (FLEXERIL) 10 mg tablet Take 1 Tablet (10 mg) by mouth 3 times daily as needed for Pain, Spasm or Discomfort. 21 Tablet 07/07/2025 Active Active Problems No known active problems Encounters Date Type Department Care Team Description 08/09/2025 External Device Data [facility] Provider, Abstract 07/13/2025 External Device Data [facility] Provider, Abstract 07/12/2025 External Device Data [facility] Provider, Abstract 07/12/2025 External Device Data [facility] Provider, Abstract 07/07/2025 3:00 PM CDT Office Visit [facility] [address] [place] [id number] Jacquelin De Santiago PA Muscle spasm of right shoulder (Primary Dx) from Last 3 Months Social History Tobacco Use Types Packs/Day Years Used Date Smoking Tobacco: Never Tobacco Cessation:Counseling Given: Not Answered Sex and Gender Information Value Date Recorded Sex Assigned at Not on file Legal Sex Male 10:24 AM CHOREOGRAPHY DIRECTOR Gender Identity Not on file Sexual Orientation Not on file Last Filed Vital Signs Vital Sign Reading Time Taken Comments Blood Pressure 94/63 07/07/2025 3:02 PM CDT Pulse 86 07/07/2025 3:02 PM CDT Temperature 37.4 C (99.3 F) 07/07/2025 3:02 PM CDT Respiratory Rate 18 07/07/2025 3:02 PM CDT Oxygen Saturation 97% 07/07/2025 3:02 PM CDT Inhaled Oxygen Concentration - - Weight 83.9 kg (185 lb) 07/07/2025 3:02 PM CDT Height - - Body Mass Index - - Plan of Treatment Health Maintenance Due Date Last Done Comments DTAP/TDAP/TD VACCINES (1 - Tdap) 1982 COLORECTAL SCREENING 2008 Colorectal Cancer Screening 2008 FIT-DNA Q 3 years 2008 FIT/FOBT Q 1 year 2008 Flex Sig/CT Colonography Q 5 years 2008 ZOSTER VACCINE (1 of 2) 2013 INFLUENZA VACCINE (#1) 2025 08/09/2023, 2021 RSV VACCINE (60+ or ) (1 - 1-dose 75+ series) 2038 COVID-19 Vaccine Completed 11/12/2024, , 08/30/2022, Additional history exists [place] [address] [place] [address] [facility] Address: [address] [place] [address]
[2025-08-15 08:13] LABS: Hematocrit 43.6 % (42.0-52.0); Hemoglobin 14.4 g/dL (14.0-18.0); Immature Granulocyte Percent A 0.4 % (0-0.5); Lymphocytes Absolute Auto 1.57 K/mm3 (0.9-3.2); Mean Corpuscular HGB Conc 33.0 g/dl (32-36); Mean Corpuscular Hemoglobin 28.1 pg (26-34); Mean Corpuscular Volume 85.0 fl (80-100); Nucleated Red Blood Cells Absolute Auto 0.000 K/mm3 (0.0-0.012); Nucleated Red Blood Cells Perc 0.0 % (0.0-0.2); Platelet Count Result 247 k/mm3 (150-375); Red Blood Count 5.13 M/mm3 (4.6-6.20); White Blood Count 5.0 K/mm3 (4.5-10.0)
[2025-08-15 08:24] LABS: Hemoglobin A1C 5.3 % (<5.7)
[2025-08-15 08:41] LABS: Alanine Aminotransferase 22 U/L (6-50); Albumin Level 4.3 g/dL (3.5-5.1); Alkaline Phosphatase 91 U/L (38-126); Anion Gap 7 mmol/L (4-12); Aspartate Amino Transferase 43 U/L (17-59); Bilirubin,Total 0.7 mg/dL (0.2-1.3); Blood Urea Nitrogen 14 mg/dL (9-20); Calcium 9.1 mg/dL (8.4-10.2); Carbon Dioxide 27 mmol/L (22-30); Chloride 102 mmol/L (98-107); Cholesterol 213 mg/dL (0-200); Estimated Glomerular Filt Rate > 60; Glucose 91 mg/dL (65-110); HDL Direct 59 mg/dL; Potassium 3.9 mmol/L (3.4-5.0); Sodium 136 mmol/L (137-145); Total Protein 8.2 g/dL (6.3-8.2); Triglycerides 96 mg/dL (<150)
[2025-08-15 09:17] LABS: Prostate Specific Antigen 0.7 ng/mL (< OR = 4.0); Thyroid Stimulating Hormone 2.220 uIU/mL (0.465-4.680)
[2025-08-15 09:36] LABS: Vitamin B12 818.0 pg/mL (239-931)
== END 2025-08-15 06:51 | disposition home or self-care (01) ==
PROVIDERS: PCP Family Medicine; Visit Provider Student in an Organized Health Care Education/Training Program
DX: E53.8 Deficiency of other specified B group vitamins (principal); I10 Essential (primary) hypertension; Z12.5 Encounter for screening for malignant neoplasm of prostate; Z13.220 Encounter for screening for lipoid disorders; R73.01 Impaired fasting glucose; R53.83 Other fatigue; Z13.29 Encounter for screening for other suspected endocrine disorder
CPT/HCPCS: 36415; 80053; 80061; 82607; 83036; 84153; 84443; 85025; G0103